=== PATIENT | male | born 1960 | race Caucasian/White ===

== ENCOUNTER 2023-01-20 13:18 | Emergency (ER) | payer MEDICAID, SELFPAY ==
[2023-01-20] VITALS (16 sets, daily range): BP systolic 102–154; BP diastolic 57–74; PULSE 86–149; RESP 15–31; TEMP 36.8; O2SAT 98–100
--- NOTE | 2023-01-20 13:15 | RT.EKG_ITS ---
APPROVED REPORT Exam: Resting ECG Reason for Exam: general weakness Patient Location: E HR:103 bpm ECG Measurements Heart Rate 103 AXIS KS 120 P 71 QRSd 83 QRS -82 QT 329 T 70 QTc 431 Conclusion Sinus tachycardia...rate> 99 Left anterior fascicular block...axis(240,-40), init forces inf ST elevation, consider inferior injury...ST >0.08mV, II III aVF no stemi
--- NOTE | 2023-01-20 13:30 | DI.RAD_ITS ---
Exam(s) XR CHEST 2V PA LATERAL EXAM: XR CHEST 2V PA LATERAL CLINICAL HISTORY: ?pneumonia. TECHNIQUE: 2D digital imaging was performed. COMPARISON: No exams were available for comparison FINDINGS: 2 views: Heart size is normal. The mediastinum is not widened. Lungs are clear. No infiltrates nor pleural effusions. IMPRESSION: No acute pulmonary findings. DATA REPOSITORY: RADIATION DOSE DELIVERED:
--- NOTE | 2023-01-20 13:30 | DI.CT_ITS ---
Exam(s) CT HEAD CERVICAL SPINE WO EXAM: CT HEAD CERVICAL SPINE WO CLINICAL HISTORY: falls, pain. TECHNIQUE: Imaging Protocol: Axial computed tomography images with coronal and sagittal reformatted images were created and reviewed COMPARISON: No exams were available for comparison FINDINGS: BRAIN: There are no skull fractures nor fluid in the visualized paranasal sinuses. There is no evidence of intracranial hemorrhage, mass effect, or shift of midline structures. There are no extra-axial fluid collections. The ventricles are not enlarged or shifted and there is no blo od within the ventricular system nor within the basal cisterns. CERVICAL SPINE: There is no evidence of fracture nor listhesis. No significant prevertebral soft tissue swelling. There is no significant facet joint malalignment. No significant osseous lesions evident. IMPRESSION: No acute intracranial findings on this noninfused CT scan of the brain. No evidence of cervical spine fracture, malalignment, nor acute compromise of the cervical spinal can al. RADIATION DOSE DELIVERED: 1,220.77mGy.cm Total DLP DATA REPOSITORY: All CT scans at this facility are submitted to the National Radiology Data Registry (NRDR) Dose Index Registry (DIR) with the [employer] ([employer]). RADIATION OPTIMIZATION: All CT scans at this facility use at least one of these dose optimization te chniques: automated exposure control; mA and/or kV adjustment per patient size (includes targeted exa ms where dose is matched to clinical indication); or iterative reconstruction.
--- NOTE | 2023-01-20 13:32 | ED.GENADUL_ITS ---
Discharge Plan Disposition Patient Disposition: Home Condition: Stable Discharge Details Clinical Impression: General weakness, Urinary tract infection, Fall, Blunt head trauma Primary Care Provider: Unknown,Unknown ED Provider: Chidi Miles Home Meds and New Rx's Prescriptions: New levofloxacin 750 mg tablet 750 mg PO DAILY Qty: 6 0RF Discharge Instructions Instructions: Urinary Tract Infection in Men (ED) Additional Instructions: your urine showed evidence of an infection follow up with your primary care provider and urologist especially if not improving in one week if you feel more ill, have severe abdomen or back pain, or fevers return to the emergency department Medical Decision Making 62 yo male who is unsure what medical problems he was on meds for but decided to stop taking them a month ago, and since has had general weakness. He denies fevers, chills, chest pain, dyspnea, abdominal pain. He has had some falls from standing, none today, from the weakness. He is oriented x4 and alert on arrival, is cachectic appearing. He has no focal deficits, cn II-XII intact. He has noted some dysuria. He has clear lungs, no murmurs, soft nontender abdomen. Unclear etiology for his generl malaise, will obtain cbc, cmp, ua, given the falls will ct his head and c cspine to evaluate for acute injuries. He has no findings to suggest cva. labs show wbc of 17, bun 48 and creatinine 1.3 with no olds in our system, ua consistent with uti and has stated he has dysuria. Imaging shows no acute findings, he feels well and is requesting d/c. HAs stable vitals and appears well so feel this is resonable, will start on oral levofloxacin and advised to f/u with his pcp and his urologist he sees in [place], return precautions given Differential Diagnosis Differential Diagnosis: dehydration, malnutrition, uti, electrolyte abnormality Imaging Data Radiologic Study: Attestation: I personally reviewed and interpreted this imaging study as follows: Imaging: X-Ray Radiologist's impression: PROCEDURE INFORMATION: Exam: XR Chest Exam date and time: 01/20/2023 2:11 PM Age: 62 years old Clinical indication: Other: ? Pneumonia TECHNIQUE: Imaging protocol: Radiologic exam of the chest. Views: 2 views. COMPARISON: CT HEAD CERVICAL SPINE WO 01/20/2023 1:59 PM FINDINGS: Lungs: There is no pulmonary consolidation or mass. Hyperinflation consistent with COPD changes. Pleural spaces: There is no evidence of pleural effusion or pneumothorax. Heart/Mediastinum: The cardiomediastinal silhouette is normal. Vasculature: Mild calcification of the thoracic aorta. Bones/joints: Degenerative changes of the thoracic spine, RIGHT acromioclavicular joint. No acute osseous findings. IMPRESSION: 1. No acute cardiopulmonary disease. 2. Additional incidental/nonemergent findings as discussed above. Radiologic Study #2: Attestation: I personally reviewed and interpreted this imaging study as follows: Imaging: CT Scan Radiologist's impression: no acute findings on head/c spine CT Lab Data Lab results reviewed: Yes I reviewed the patient's lab results. ECG Data Attestation: I personally reviewed and interpreted this ECG (s) as follows: Prior ECG tracings: not available for review Interpretation: sinus tachycardia, rate of 103, pr 120, no stemi HPI General Mode of arrival: EMS . Date/Time Provider Initiated Documentation: 01/20/23 13:30 . Limitations to Documentation: no limitations . Information obtained by: patient . History of Present Illness 62 year old M presents to the emergency department with the chief complaint of general weakness, described as moderate, Patient started experiencing this week(s) (4) and it has been constant. No relieving factors improve symptom(s), No exacerbating factors reported . Patient notes no other symptoms.. Patient did receive the following treatments prior to arrival, none Related Data Home Medications Medication Instructions Recorded Confirmed levofloxacin 750 mg tablet 750 mg PO DAILY #6 tabs 01/20/23 Previous Rx's Medication Instructions Recorded levofloxacin 750 mg tablet 750 mg PO DAILY #6 tabs 01/20/23 Allergies Allergy/AdvReac Type Severity Reaction Status Date / Time NSAIDS (Non-Steroidal Allergy Unknown Verified 01/11/23 08:05 Anti-Inflamma General Stated Complaint: GenMedical PAUL: 3 Review of Systems All systems reviewed & are unremarkable except as noted in HPI and below Constitutional Constitutional: Denies chills, Denies fever(s) and Reports weakness Cardiovascular Cardiovascular: Denies chest pain and Denies dyspnea Respiratory Respiratory: Denies dyspnea Gastrointestinal Gastrointestinal: Denies abdominal pain, Denies nausea and Denies vomiting Musculoskeletal Musculoskeletal: Denies joint swelling Integumentary/Breasts Skin/Breast: Denies rash Neurologic Neurologic: Reports weakness PFSH All Active Problems (Updated 01/20/23 @ 15:43 by Chidi Miles MD) General weakness (Acute) Urinary tract infection (Acute) Fall (Acute) Blunt head trauma (Acute) Hyperlipidemia (Acute) Hypertension (Chronic) Bladder mass (Acute) Social History (Updated 01/11/23 @ 08:08 by Marina Mcfarlane RN, RN) Smoking/Tobacco Use Status: Current every day Smoking risk assessment performed?: Yes Alcohol Intake: current Alcohol Intake frequency: 3 or more drinks per day Alcohol type: beer Substance use type: former substance user What is your relationship status?: Panel score (0-1 are the most socially isolated patients): 0 Do you feel safe at home: Yes Do you feel safe in your relationship?: Yes Exam Const General: no acute distress Orientation: alert HENMT Head: normal to inspection Ears: external ears normal General nose exam: external nose normal Mouth: moist mucous membranes Resp Effort & Inspection: normal respiratory effort and able to speak in complete sentences Cardio Jugular venous pressure: no JVD Rate: regular rate Heart Sounds: no murmurs GI Palpation: soft and nontender Skin General skin exam: no rashes or lesions noted Neuro General: patient alert and patient oriented x3 Extrem General: normal to inspection Course Vital Signs Vital signs: Vital Signs Temperature 36.8 C 01/20/23 13:23 Pulse 140 H 01/20/23 13:23 Respiratory Rate 30 H 01/20/23 13:23 Blood Pressure 102/58 L 01/20/23 13:23 Pulse Oximetry 99 01/20/23 13:23 Temperature 36.8 C 01/20/23 13:23 Temperature Source Oral 01/20/23 13:23 Pulse 140 H 01/20/23 13:23 Respiratory Rate 30 H 01/20/23 13:23 Blood Pressure 102/58 L 01/20/23 13:23 Blood Pressure Position Sitting 01/20/23 13:23 Pulse Oximetry 99 01/20/23 13:23 Pain Level 0 01/20/23 13:23
[2023-01-20] MEDS: Normal Saline 1,000 ML 1000 ML IV (13:45)
[2023-01-20 13:48] LABS: Source Nasal/Nares
[2023-01-20 13:51] LABS: Abs Immature Grans 0.11 10^3/uL (0.0-0.06); Absolute Basophil Count 0.03 10^3/uL (0.0-0.2); Basophils % 0.2; Eosinophils % 0.1; HCT 46.2 % (40.0-50.0); HGB 15.6 g/dL (13.5-17.5); Immature Grans % 0.6; Lymphocytes % 4.1; MCH 28.7 pg (27.0-33.0); MCHC 33.8 % (32.0-36.0); MCV 85 fL (80-95); MPV 9.4 fL (8.0-11.0); Monocytes % 4.1; Neutrophils % 90.9; Platelet Count 258 10^3/uL (130-400); RBC 5.44 10^6/uL (4.36-5.78); RDW 13.2 % (11.8-14.1); RDW-SD 40.8 fL; WBC 17.03 10^3/uL (4.4-10.8)
[2023-01-20 13:53] LABS: Absolute Eosinophil Count 0.02 10^3/uL (0.0-0.7); Absolute Neutrophil Count 15.48 10^3/uL (1.2-6.7)
[2023-01-20 14:04] LABS: PTT Activated 29.3 sec (21.5-31.9)
[2023-01-20 14:16] LABS: ALT 13 U/L (16-63); AST 11 U/L (15-37); Albumin 3.1 g/dL (3.4-5.0); Alkaline Phosphatase 132 U/L (46-116); Anion Gap 12.1 mmol/L (3-11); BUN 48 mg/dL (7-18); Bilirubin, Total 0.7 mg/dL (0.2-1.0); CO2 23.9 mmol/L (21.0-32.0); CREATININE 1.3 mg/dL (0.70-1.30); Calcium 10.4 mg/dL (8.5-10.1); Chloride 95 mmol/L (98-107); Creatine Kinase 18 U/L (39-308); Estimated GFR 61.35 (mL/min/1.73m2); Glucose 103 mg/dL (74-106); Lipase 22 U/L (16-77); Magnesium 2.1 mg/dL (1.8-2.4); Potassium 4.6 mmol/L (3.5-5.1); Sodium 131 mmol/L (136-145); TSH (W/Ref FT4) 2.85 uIU/mL (0.36-3.74); Total Protein 7.5 g/dL (6.4-8.2); Troponin I < 50 ng/L (<or=60)
[2023-01-20 14:21] LABS: COVID-19 PCR Negative (Negative)
[2023-01-20 14:43] LABS: Procalcitonin 0.1 ng/mL
--- NOTE | 2023-01-20 14:52 | DI.VRAD_ITS ---
PROCEDURE INFORMATION: Exam: XR Chest Exam date and time: 01/20/2023 2:11 PM Age: 62 years old Clinical indication: Other: ? Pneumonia TECHNIQUE: Imaging protocol: Radiologic exam of the chest. Views: 2 views. COMPARISON: CT HEAD CERVICAL SPINE WO 01/20/2023 1:59 PM FINDINGS: Lungs: There is no pulmonary consolidation or mass. Hyperinflation consistent with COPD changes. Pleural spaces: There is no evidence of pleural effusion or pneumothorax. Heart/Mediastinum: The cardiomediastinal silhouette is normal. Vasculature: Mild calcification of the thoracic aorta. Bones/joints: Degenerative changes of the thoracic spine, RIGHT acromioclavicular joint. No acute osseous findings. IMPRESSION: 1. No acute cardiopulmonary disease. 2. Additional incidental/nonemergent findings as discussed above. Dictated and Authenticated by: Sunita Baer MD. Ordering:VICENTE Murillo MD
--- NOTE | 2023-01-20 15:05 | DI.VRAD_ITS ---
PROCEDURE INFORMATION: Exam: CT Head Without Contrast Exam date and time: 01/20/2023 1:59 PM Age: 62 years old Clinical indication: Other: Falls/ pain; Weakness and other: Falls/pain TECHNIQUE: Imaging protocol: Computed tomography of the head without contrast. Radiation optimization: All CT scans at this facility use at least one of these dose optimization techniques: automated exposure control; mA and/or kV adjustment per patient size (includes targeted exams where dose is matched to clinical indication); or iterative reconstruction. COMPARISON: No relevant prior studies available. FINDINGS: Brain: Mild volume loss No hemorrhage. Mild white matter disease. No mass effect. Cerebral ventricles: No ventriculomegaly. Paranasal sinuses: Visualized sinuses are unremarkable. No fluid levels. Mastoid air cells: Visualized mastoid air cells are well aerated. Bones/joints: Unremarkable. No acute fracture. Soft tissues: Unremarkable. IMPRESSION: No acute intracranial abnormality. PROCEDURE INFORMATION: Exam: CT Cervical Spine Without Contrast Exam date and time: 01/20/2023 1:59 PM Age: 62 years old Clinical indication: Other: Falls/ pain; Weakness and other: Falls/pain TECHNIQUE: Imaging protocol: Computed tomography of the cervical spine without contrast. Radiation optimization: All CT scans at this facility use at least one of these dose optimization techniques: automated exposure control; mA and/or kV adjustment per patient size (includes targeted exams where dose is matched to clinical indication); or iterative reconstruction. COMPARISON: No relevant prior studies available. FINDINGS: Bones/joints: No acute fracture. Loss of cervical lordosis is presumably on a degenerative basis.No significant disc bulge or herniation. No severe spinal canal stenosis. No significant neural foraminal narrowing. Lungs: 3 mm nodule in the right upper lobe partially visualized Soft tissues: Unremarkable. IMPRESSION: No acute findings. Dictated and Authenticated by: Renny Nguyen MD. Ordering:VICENTE Murillo MD
[2023-01-20 15:08] LABS: Bilirubin Small (Negative); Blood Large (Negative); Clarity Cloudy (Clear); Glucose Negative (Negative); Ketones 15 mg/dL (Negative); Leukocyte Esterase Small (Negative); Nitrite Negative (Negative); Specific Gravity >= 1.030 (1.005-1.025); Urobilinogen 0.2 mg/dL (Up to 0.2)
[2023-01-20 15:20] LABS: Bacteria Many HPF (Negative); C & S Indicated? Yes; Casts Negative LPF (Negative); Crystals Negative HPF (Negative); Epithelial Cells Few HPF (Negative); Mucus Moderate (Negative); RBC >50 HPF (0-2)
[2023-01-20] MEDS: levoFLOXacin 500 MG, levoFLOXacin 250 MG 750 MG PO (15:30)
--- NOTE | 2023-01-20 16:31 | NUR.NOTE ---
Referral per Dr. Miles for Care Management follow up assistance for placement assistance for patient. Patient's brother would like to see the patient placed at [facility]. He was here for weakness. Put the referral in the Docking Saw Operator's box for follow up assistance.Nursing Note:
--- NOTE | 2023-01-22 09:55 | NUR.NOTE ---
Accessed chart to look up whether or not on antibiotic.Nursing Note:
== END 2023-01-20 15:50 | disposition home or self-care (01) ==
PROVIDERS: Emergency Provider Emergency Medicine
DX: R53.1 Weakness (principal); N39.0 Urinary tract infection, site not specified; S09.8XXA Other specified injuries of head, initial encounter; W19.XXXA Unspecified fall, initial encounter
CPT/HCPCS: 80053; 82550; 83690; 84145; 87635; 93005; 96360; 96361; 99284; 70450; 71046; 72125; 81003; 81015; 83735; 84443; 84484; 85025; 85610; 85730; 87086; 93010

== ENCOUNTER 2023-01-22 10:52 | Inpatient (IN) | payer MEDICAID, SELFPAY ==
[2023-01-22] VITALS (20 sets, daily range): BP systolic 85–154; BP diastolic 53–85; PULSE 75–115; RESP 12–21; TEMP 36.6; O2SAT 94–97
--- NOTE | 2023-01-22 11:54 | ED.GENADUL_ITS ---
Discharge Plan Disposition Patient Disposition: Admit to [facility] Discharge Details Chief Complaint: GenMedical Clinical Impression: Bladder mass, General weakness, Urinary tract infection, Adult failure to thrive Primary Care Provider: Unknown,Unknown ED Provider: Tim Alcantar Home Meds and New Rx's Prescriptions: No Action levofloxacin 750 mg tablet 750 mg PO DAILY Qty: 6 0RF Medical Decision Making This is a 62-year-old male who is a very poor historian, who unfortunately does not have much in the way of medical records here, but upon searches has been to few hospitals in [facility] and here before. Per review of that it appears that he may have diagnoses of major depression, schizophrenia, questionable bladder mass, may be seizures?, And previous electrolyte abnormalities, who presents today for evaluation. He was seen 3 days ago by my colleague after falls and weakness. He had evidence of urinary tract infection. CT imaging of the head neck chest and abdomen were negative for acute process. He was started on Levaquin and discharged home. Unfortunately it sounds like he keeps falling at home. He was brought in by his cousin Camden today who brought him to the ED and said I cannot take care of him anymore, I cannot meet his needs. Unfortunately the cousin left, and there are no other contact numbers on file. We did call the number that is on file and it goes directly to [facility]. Patient states that he has generalized soreness in his right chest where he fell, his buttock, and feels slightly nauseous. He does admit to some diarrhea over the last few days. He states also that Camden is not able to take care of him at this stage. They are looking for help and assistance. Per access and initial nursing staff triage Camden was requesting placement for the patient. No other complaints at this time. No other modifying factors. Exam demonstrates a thin and cachectic appearing male. No focal bruising. No focal tenderness aside for the right ribs. Pelvis appears stable. Notably weak throughout, with no focal unilateral weakness. Suspect failure to thrive. Questionable dehydration as well from his diarrhea. Will check for C. difficile and stool study cultures. We will recheck UA, give small fluid bolus, check for electrolyte abnormalities, get imaging secondary to his repeated falls. We did try contacting his cousin Camden who the patient lives with, and it went directly to voicemail. Patient has no other contacts available otherwise. Will evaluate for etiologies, monitor closely and reassess. 2:[address] scan of the head is negative for acute process, CT of the chest abdomen pelvis demonstrates multiple lung nodules, suspected liver metastases, notable lymphadenopathy throughout, and a large bladder mass as well as hydroureter hydronephrosis on the right and left secondary to mass obstruction. White count is slightly worsening, now 18, urinalysis shows continued mild infection. Electrolytes stable, renal function slightly worse with a creatinine of 1.5. Alk phos 130, albumin is low at 2.9, TSH is high at 4.2, but free T4 is normal. I did discuss these results with the patient. His brother is also now at bedside. I had a long and maya discussion with the patient regarding his findings, metastases, and the concern that this has on the potential longevity of life. Patient was uncertain at this time as to what he wants in regards to pursuit of treatment. He does not appear stable enough to go home at this time with his notable weakness, his continued failure to thrive and urinary tract infection despite the outpatient therapy of levofloxacin. I have discussed the case with case management, they agree on the need for additional resources. With his worsening scenario, I do feel that admission is appropriate at this time. Discussed the case with the hospitalist Dr. Mack, he agrees with the assessment and plan. I have extensively reviewed the treatment plan with the patient. I have addressed all patient concerns at this time. I have also discussed the plan with the admitting physician and they agree with the current assessment and plan and have agreed to assume responsibility for the patient. All parties demonstrate verbal understanding and agreement with our assessment and plan at this time. The documentation in this chart was dictated using [employer] dictation software. Please excuse any dictation errors. FINDINGS: There are no skull fractures. There is no fluid in the visualized paranasal sinuses. There is no evidence of intracranial hemorrhage, mass effect, or shift of midline structures. There are no extra-axial fluid collections. The ventricles are not enlarged or shifted and there is no blood within the ventricular system nor within the basal cisterns. IMPRESSION: No acute intracranial findings on this noninfused CT scan of the brain. FINDINGS: CHEST: LUNGS: There are noncalcified lung nodules bilaterally suspicious for metastatic disease. The largest on the right side measures 11 by 10 mm. Largest nodule in the left lung measures 11 by 9 mm. There are no confluent infiltrates nor pleural effusions. There are secretions/mucus evident in the right mainstem bronchus. Left mainstem bronchus is clear. MEDIASTINUM: There is mediastinal lymphadenopathy. No obvious hilar adenopathy. No subcarinal adenopathy. No supraclavicular adenopathy. No right axillary adenopathy. Few enlarged lymph nodes are noted in the opposite-lower left axilla. CARDIAC: Heart size is normal. Small pericardial effusion. Coronary artery calcification evident. Ascending thoracic aorta diameter is 3.6 cm. Descending thoracic aorta diameter 2.8 cm. OSSEOUS: The right 6th rib has appearance of a healed-healing fracture site. No other significant right rib findings.. No left rib findings. No vertebral fractures nor osseous lesions in the vertebral bodies.. ABDOMEN: There is no ascites. No mesenteric masses. LIVER: Subtle suggestion of abnormal densities in the liver but difficult to assess without IV contrast. Suspect possible metastatic disease. GALLBLADDER/BILIARY: No obvious gallbladder pathology. CBD is not dilated. PANCREAS: No evidence of obvious pancreatic mass nor dilatation of the pancreatic duct. SPLEEN: Spleen is not enlarged. No obvious intrasplenic lesions. ADRENALS: There are no significant adrenal masses. KIDNEYS: No renal masses nor cysts. Left kidney unremarkable. Right kidney exhibits hydronephrosis and hydroureter. Diameter of the right ureter is 1.5 cm. Diameter of the left ureter is slightly prominent measuring 9 mm.. The urinary bladder lumen is filled with mass, partially calcified. Highly suspicious for neoplasm of the urinary bladder. ABDOMINAL AORTA: Heavily calcified but not enlarged. LYMPH NODES: There is some retroperitoneal and para-aortic adenopathy. Also some adenopathy along the iliac chains, left more so than right. ABDOMINAL WALL/GI: No evidence of significant anterior abdominal wall nor inguinal hernia. No evidence of bowel obstruction. PELVIS: LYMPH NODES: Positive for intrathecal pelvic adenopathy. Most prominent is along the left iliac chain. Also enlarged lymph nodes in the left groin medial to the femoral vein. GI: No evidence of appendicitis.No evidence of sigmoid diverticulitis. URINARY BLADDER: Large luminal neoplasm evident. REPRODUCTIVE: Prostate size minimally prominent. Seminal vesicles unremarkable. OSSEOUS: No significant osseous lesions. IMPRESSION: 1. Large advanced mass in the urinary bladder highly suspicious and causing significant right hydronephrosis and hydroureter and mild left hydroureter. 2. There is lymphadenopathy in the pelvis, retroperitoneum, and mediastinum. 3. Multiple lung nodules noted which are most probably metastatic. No associated pleural effusions. 4. Suspect liver metastases, somewhat difficult to evaluate without IV contrast. HPI General Date/Time Provider Initiated Documentation: 01/22/23 11:12 . HPI Narrative: This is a 62-year-old male who is a very poor historian, who unfortunately does not have much in the way of medical records here, but upon searches has been to few hospitals in [facility] and here before. Per review of that it appears that he may have diagnoses of major depression, schizophrenia, questionable bladder mass, may be seizures?, And previous electrolyte abnormalities, who presents today for evaluation. He was seen 3 days ago by my colleague after falls and weakness. He had evidence of urinary tract infection. CT imaging of the head neck chest and abdomen were negative for acute process. He was started on Levaquin and discharged home. Unfortunately it sounds like he keeps falling at home. He was brought in by his cousin Camden today who brought him to the ED and said I cannot take care of him anymore, I cannot meet his needs. Unfortunately the cousin left, and there are no other contact numbers on file. We did call the number that is on file and it goes directly to [email or web address]. Patient states that he has generalized soreness in his right chest where he fell, his buttock, and feels slightly nauseous. He does admit to some diarrhea over the last few days. He states also that Camden is not able to take care of him at this stage. They are looking for help and assistance. Per access and initial nursing staff triage Camden was requesting placement for the patient. No other complaints at this time. No other modifying factors. Related Data Home Medications Medication Instructions Recorded Confirmed levofloxacin 750 mg tablet 750 mg PO DAILY #6 tabs 01/20/23 01/22/23 Previous Rx's Medication Instructions Recorded levofloxacin 750 mg tablet 750 mg PO DAILY #6 tabs 01/20/23 Allergies Allergy/AdvReac Type Severity Reaction Status Date / Time NSAIDS (Non-Steroidal Allergy Unknown Verified 01/22/23 11:48 Anti-Inflamma General Stated Complaint: GenMedical PAUL: 3 Review of Systems All systems reviewed & are unremarkable except as noted in HPI and below PFSH All Active Problems (Updated 01/22/23 @ 14:42 by Tim Alcantar DO) General weakness (Acute) Urinary tract infection (Acute) Fall (Acute) Blunt head trauma (Acute) Adult failure to thrive (Acute) Hyperlipidemia (Acute) Hypertension (Chronic) Bladder mass (Acute) Social History Smoking/Tobacco Use Status: Current every day Tobacco Type: cigarettes Smoking risk assessment performed?: Yes Alcohol Intake: current Alcohol Intake frequency: 3 or more drinks per day Alcohol type: beer Drug use: Occasionally Substance use type: marijuana What is your relationship status?: Panel score (0-1 are the most socially isolated patients): 0 Do you feel safe at home: Yes Do you feel safe in your relationship?: Yes Exam Narrative Exam Narrative: 1.Const: Thin and cachectic appearing 2.Eyes: PERRL, no conjunctival injection, and symmetrical lids. 3.ENT: Atraumatic external nose and ears. Moist MM. Neck: Symmetric, trachea midline, No thyromegaly. There is no evidence of raccoon eyes, flores sign, CSF rhinorrhea, mastoid tenderness, cranial crepitus, hemotympanum, exophthalmos, or hyphema. Patient demonstrates intact dentition with no signs of tooth avulsion or fracture, no signs of jaw deformity, no evidence of a LeFort's fracture, with an intact palate, nose and orbital region. There is no evidence of a nasal septal hematoma. No proptosis. Jaw closes symmetrically. Airway is clear. 4.CVS: +S1/S2, No murmurs or gallops. Peripheral pulses 2+ and equal in all extremities. Brisk capillary refill in all extremities. 5.RESP: Unlabored respiratory effort. Clear to auscultation bilaterally. No wheezes rales or rhonchi. Mild right-sided chest pain. 6.GI: Soft, Nontender/Nondistended, No hepatosplenomegaly. No guarding or rebound. 7.MSK: Normocephalic/Atraumatic, Extremities w/o deformity or ttp No cyanosis or clubbing, Normal movement of all extremities, however he is notably weak throughout 8.Skin: Warm, Dry. No rashes or lesions. 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 Sensation grossly intact, no focal neurologic deficits. 10.Psych: (AAO) x3. Appropriate mood and affect Course Vital Signs Vital signs: Vital Signs Temperature 36.6 C 01/22/23 10:55 Pulse 115 H 01/22/23 10:55 Respiratory Rate 18 01/22/23 10:55 Blood Pressure 85/53 L 01/22/23 10:55 Pulse Oximetry 97 01/22/23 10:55 Temperature 36.6 C 01/22/23 10:55 Temperature Source Skin 01/22/23 10:55 Pulse 115 H 01/22/23 10:55 Respiratory Rate 16 01/22/23 11:44 Respiratory Effort Normal 01/22/23 11:44 Respiratory Depth Normal 01/22/23 11:44 Respiratory Pattern Normal 01/22/23 11:44 Blood Pressure 85/53 L 01/22/23 10:55 Blood Pressure Position Sitting 01/22/23 10:55 Pulse Oximetry 97 01/22/23 10:55 Oxygen Delivery Method Room Air 01/22/23 10:55 Oxygen Flow Rate 0 01/22/23 10:55 Pain Level 8 01/22/23 10:55 PAWSS Have you Been Recently Intoxicated or Drunk Within the Last 30 days?: Yes Have you Ever Experienced Previous Episodes of Alcohol Withdrawal?: No Have you ever Experienced Withdrawal Seizures?: No Have you ever Experienced Delirium Tremens(DT)s?: No Have you ever undergone Alcohol Rehabilitation Treatment (i.e, inpt ot outpatient treatment programs)?: No Have you ever Experienced Blackouts?: No Have you ever Combined Alcohol with other Downers within the last 90 days?: No Have you ever Combined Alcohol with any other Substance of Abuse during the last 90 days?: No Result: 1
[2023-01-22 12:04] LABS: Abs Immature Grans 0.22 10^3/uL (0.0-0.06); Absolute Lymphocyte Count 0.65 10^3/uL (1.2-3.4); Basophils % 0.3; Eosinophils % 0.1; HCT 50.3 % (40.0-50.0); HGB 16.9 g/dL (13.5-17.5); Immature Grans % 1.2; Lymphocytes % 3.5; MCHC 33.6 % (32.0-36.0); MCV 86 fL (80-95); MPV 9.7 fL (8.0-11.0); Monocytes % 3.6; Neutrophils % 91.3; Platelet Count 293 10^3/uL (130-400); RBC 5.83 10^6/uL (4.36-5.78); RDW 13.6 % (11.8-14.1); RDW-SD 42.2 fL; WBC 18.49 10^3/uL (4.4-10.8)
[2023-01-22 12:07] LABS: Absolute Basophil Count 0.06 10^3/uL (0.0-0.2); Absolute Eosinophil Count 0.02 10^3/uL (0.0-0.7); Absolute Monocyte Count 0.67 10^3/uL (0.1-0.8); Absolute Neutrophil Count 16.88 10^3/uL (1.2-6.7)
[2023-01-22] MEDS: Normal Saline 500 ML IV ×2 (12:20→14:50)
[2023-01-22 12:49] LABS: ALT 12 U/L (16-63); AST 15 U/L (15-37); Albumin 2.9 g/dL (3.4-5.0); Alkaline Phosphatase 130 U/L (46-116); Anion Gap 13.9 mmol/L (3-11); BUN 49 mg/dL (7-18); Bilirubin, Total 0.7 mg/dL (0.2-1.0); CO2 23.1 mmol/L (21.0-32.0); CREATININE 1.5 mg/dL (0.70-1.30); Chloride 96 mmol/L (98-107); Estimated GFR 51.67 (mL/min/1.73m2); Glucose 111 mg/dL (74-106); Magnesium 2.1 mg/dL (1.8-2.4); Potassium 4.3 mmol/L (3.5-5.1); Sodium 133 mmol/L (136-145); Total Protein 7.5 g/dL (6.4-8.2)
--- NOTE | 2023-01-22 12:50 | DI.CT_ITS ---
Exam(s) CT HEAD WO EXAM: CT HEAD WO CLINICAL HISTORY: falls r/o bleed. TECHNIQUE: Imaging Protocol: Axial computed tomography images with coronal and sagittal reformatted images were created and reviewed COMPARISON: CT CT HEAD CERVICAL SPINE WO from 01/20/2023 FINDINGS: There are no skull fractures. There is no fluid in the visualized paranasal sinuses. There is no evidence of intracranial hemorrhage, mass effect, or shift of midline structures. There are no extra-axial fluid collections. The ventricles are not enlarged or shifted and there is no blo od within the ventricular system nor within the basal cisterns. IMPRESSION: No acute intracranial findings on this noninfused CT scan of the brain. RADIATION DOSE DELIVERED: 722.42mGy.cm Total DLP DATA REPOSITORY: All CT scans at this facility are submitted to the National Radiology Data Registry (NRDR) Dose Index Registry (DIR) with the [employer] (A[employer]). RADIATION OPTIMIZATION: All CT scans at this facility use at least one of these dose optimization te chniques: automated exposure control; mA and/or kV adjustment per patient size (includes targeted exa ms where dose is matched to clinical indication); or iterative reconstruction.
--- NOTE | 2023-01-22 13:00 | DI.CT_ITS ---
Exam(s) CT CHEST/ABD/PEL WO EXAM: CT CHEST/ABD/PEL WO CLINICAL HISTORY: multiple falls, right rib pain. TECHNIQUE: Imaging Protocol: Axial computed tomography images with coronal and sagittal reformatted images were created and reviewed CONTRAST MATERIAL: Intravenous: none Oral: None COMPARISON: No exams were available for comparison FINDINGS: CHEST: LUNGS: There are noncalcified lung nodules bilaterally suspicious for metastatic disease. The larges t on the right side measures 11 by 10 mm. Largest nodule in the left lung measures 11 by 9 mm. Ther e are no confluent infiltrates nor pleural effusions. There are secretions/mucus evident in the righ t mainstem bronchus. Left mainstem bronchus is clear. MEDIASTINUM: There is mediastinal lymphadenopathy. No obvious hilar adenopathy. No subcarinal adeno katherine. No supraclavicular adenopathy. No right axillary adenopathy. Few enlarged lymph nodes are n oted in the opposite-lower left axilla. CARDIAC: Heart size is normal. Small pericardial effusion. Coronary artery calcification evident. Ascending thoracic aorta diameter is 3.6 cm. Descending thoracic aorta diameter 2.8 cm. OSSEOUS: The right 6th rib has appearance of a healed-healing fracture site. No other significant ri ght rib findings.. No left rib findings. No vertebral fractures nor osseous lesions in the vertebra l bodies.. ABDOMEN: There is no ascites. No mesenteric masses. LIVER: Subtle suggestion of abnormal densities in the liver but difficult to assess without IV contra st. Suspect possible metastatic disease. GALLBLADDER/BILIARY: No obvious gallbladder pathology. CBD is not dilated. PANCREAS: No evidence of obvious pancreatic mass nor dilatation of the pancreatic duct. SPLEEN: Spleen is not enlarged. No obvious intrasplenic lesions. ADRENALS: There are no significant adrenal masses. KIDNEYS: No renal masses nor cysts. Left kidney unremarkable. Right kidney exhibits hydronephrosis and hydroureter. Diameter of the right ureter is 1.5 cm. Diameter of the left ureter is slightly pr ominent measuring 9 mm.. The urinary bladder lumen is filled with mass, partially calcified. Highly suspicious for neoplasm of the urinary bladder. ABDOMINAL AORTA: Heavily calcified but not enlarged. LYMPH NODES: There is some retroperitoneal and para-aortic adenopathy. Also some adenopathy along th e iliac chains, left more so than right. ABDOMINAL WALL/GI: No evidence of significant anterior abdominal wall nor inguinal hernia. No evidence of bowel obstruction. PELVIS: LYMPH NODES: Positive for intrathecal pelvic adenopathy. Most prominent is along the left iliac diandra n. Also enlarged lymph nodes in the left groin medial to the femoral vein. GI: No evidence of appendicitis.No evidence of sigmoid diverticulitis. URINARY BLADDER: Large luminal neoplasm evident. REPRODUCTIVE: Prostate size minimally prominent. Seminal vesicles unremarkable. OSSEOUS: No significant osseous lesions. IMPRESSION: 1. Large advanced mass in the urinary bladder highly suspicious and causing significant right hydrone phrosis and hydroureter and mild left hydroureter. 2. There is lymphadenopathy in the pelvis, retroperitoneum, and mediastinum. 3. Multiple lung nodules noted which are most probably metastatic. No associated pleural effusions. 4. Suspect liver metastases, somewhat difficult to evaluate without IV contrast. Called by myself to ER. RADIATION DOSE DELIVERED: 795.29mGy.cm Total DLP DATA REPOSITORY: All CT scans at this facility are submitted to the National Radiology Data Registry (NRDR) Dose Index Registry (DIR) with the [employer] (ACR). RADIATION OPTIMIZATION: All CT scans at this facility use at least one of these dose optimization te chniques: automated exposure control; mA and/or kV adjustment per patient size (includes targeted exa ms where dose is matched to clinical indication); or iterative reconstruction.
[2023-01-22 13:08] LABS: FREE T4 1.14 ng/dL (0.76-1.46)
[2023-01-22 13:12] LABS: Bilirubin Small (Negative); Blood Large (Negative); Clarity Sl Cloudy (Clear); Glucose Negative (Negative); Ketones 15 mg/dL (Negative); Leukocyte Esterase Small (Negative); Nitrite Negative (Negative); Specific Gravity >= 1.030 (1.005-1.025); Urobilinogen 0.2 mg/dL (Up to 0.2)
[2023-01-22 13:19] LABS: RBC >50 HPF (0-2)
[2023-01-22 13:21] LABS: C & S Indicated? Yes
--- NOTE | 2023-01-22 15:23 | NUR.NOTE ---
Addendum entered by Henna Ortega 01/23/23 16:43: Received from [facility] a notice that they needed more specific dates and more information in order to fax us any information about the patient. Forms faxed to Med/Surg. Original Note: Nursing Note: Request for records from [facility]; medical and surgical summary, medication list and EKG.
--- NOTE | 2023-01-22 15:50 | W.UROLOGYCON ---
Date of service: 01/23/23 Time of Service: 07:05 Assessment and Plan Assessment and plan (1) Bladder mass: Status: Acute Assessment and plan: While the patient is new to our system, the bladder mass is at least known for the past month based on his [facility] CT scan. He almost certainly has metastatic bladder cancer as indicated in Dr. Remy's notes. Our approach will really depend on how aggressive the patient would like to be in his potential treatments. When I discussed the situation with the patient this morning, he mentioned that some of the details I was discussing sounded familiar. It was still very difficult for me to get a good handle on whether or not the patient understood our entire discussion. Depending on how aggressive the patient may want to pursue his work-up, he may need to have most of it done at a tertiary care center. I would be able to do a cystoscopy and TUR biopsy to confirm surgical pathology in his bladder. Given the size and extent of his bladder tumor, I would not expect to be able to completely resect his tumor or to place a ureteral stent in a retrograde manner. If he did want his right kidney drained, he would likely need a nephrostomy tube placed by interventional radiology. If he is interested in pursuing aggressive treatment for any identified tumor, he would need to be evaluated by medical oncology for likely systemic chemotherapy. On the other end of the spectrum, comfort care could be offered. He does have a palliative care referral and the palliative care providers may have a better sense regarding the patient's wishes. In the meantime, his bladder outlet does not seem obstructed with clots, so I do not see a need to place a urethral catheter. History of Present Illness History of Present Illness Chief Complaint: Bladder mass Narrative: This is a 62-year-old gentleman who presented to our emergency department yesterday with weakness and failure to thrive. He has sustained multiple falls. He lives with a relative who does not believe he can safely care for Fritz at home any longer. Fritz is a rather poor historian, but we found that he had been at the [facility] emergency department about a month ago. At that time, he had gross hematuria with clots. He had a CT scan which showed evidence of a large bladder mass, pelvic adenopathy and right hydronephrosis. His case was discussed with Dr. Yahaira armenta at [facility]. Since the patient was emptying his bladder, it was felt he did not need a catheter or admission to the hospital. He was seen by Dr. Jonel hartman in [place] as an outpatient. Dr. Remy suspected metastatic bladder cancer and planned on doing a TUR bladder tumor if the patient was medically appropriate. He had no local primary care provider and he had been complaining of some chest pain and shortness of breath with exertion. A cardiology evaluation was requested before the surgery could be scheduled. At this time, the patient is not describing clots in the urine. He voids small amounts frequently with some incontinence. Review of Systems Narrative: No fevers or chills No vision change or dysphasia No diabetes or thyroid dysfunction No hepatitis, ulcers, jaundice Hx head injury. No strokes No bleeding disorders No gout PFSH All Active Problems General weakness (Acute) Urinary tract infection (Acute) Fall (Acute) Blunt head trauma (Acute) Adult failure to thrive (Acute) Hyperlipidemia (Acute) Hypertension (Chronic) Bladder mass (Acute) Social History Smoking/Tobacco Use Status: Current every day Tobacco Type: cigarettes Smoking risk assessment performed?: Yes Alcohol Intake: current Alcohol Intake frequency: 3 or more drinks per day Alcohol type: beer Drug use: Occasionally Substance use type: marijuana Housing: other What is your relationship status?: Panel score (0-1 are the most socially isolated patients): 0 Do you feel safe at home: Yes Do you feel safe in your relationship?: Yes Exam Narrative Exam Narrative: He appears cachectic and chronically ill His vital signs are documented elsewhere His abdomen is soft with no peritoneal signs There are enlarged lymph nodes in the left inguinal region. No enlarged lymph nodes are palpable on the right He is awake and alert I reviewed his noncontrast CT scan on our PACS system. There is a large amount of solid tissue within the lumen of the bladder with adherent calcifications. There is pelvic adenopathy and severe right hydronephrosis and hydroureter. There is evidence of pulmonary metastasis as well. I reviewed his records on the [facility] EMR. The patient has not actually been at [facility], but apparently he has been at [facility] as recently as 12/29/2022. He had a CT of the abdomen and pelvis done at that time. I was able to review the films through the [facility] EMR. They have a similar appearance to his current CT scan with extensive bladder mass, right hydronephrosis and pelvic adenopathy. The chest was not imaged at that time. His urine culture from 2 days ago shows no bacterial growth. Results Last Vital Signs Temp 36.6 C 01/22/23 10:55 Pulse 83 01/22/23 14:47 Resp 16 01/22/23 14:48 BP 116/66 01/22/23 14:47 Pulse Ox 97 01/22/23 10:55 Labs 01/23/23 06:00 01/23/23 06:00 Labs: Laboratory Results - last 24 hr 01/22/23 01/22/23 01/22/23 11:59 11:59 11:59 WBC 18.49 H RBC 5.83 H Hgb 16.9 Hct 50.3 H MCV 86 MCH 29.0 MCHC 33.6 RDW 13.6 Plt Count 293 MPV 9.7 Immature Gran % 1.2 Neutrophils % 91.3 Lymphocytes % 3.5 Monocytes % 3.6 Eosinophils % 0.1 Basophils % 0.3 Nucleated RBC % 0.0 Absolute Neutrophils 16.88 H Absolute Lymphocytes 0.65 L Absolute Monocytes 0.67 Absolute Eosinophils 0.02 Absolute Basophils 0.06 Sodium Cancelled Potassium Cancelled Chloride Cancelled Carbon Dioxide Cancelled Anion Gap Cancelled BUN Cancelled Creatinine Cancelled Est GFR (CKD-EPI 2020) Cancelled Glucose Cancelled Calcium Cancelled Magnesium Cancelled Total Bilirubin Cancelled AST Cancelled ALT Cancelled Alkaline Phosphatase Cancelled Total Protein Cancelled Albumin Cancelled TSH Cancelled Free T4 Urine Color Urine Clarity Urine pH Ur Specific [place] Urine Protein Urine Ketones Urine Blood Urine Nitrite Urine Bilirubin Urine Urobilinogen Ur Leukocyte Esterase Urine RBC Urine WBC Ur Epithelial Cells Urine Crystals Urine Bacteria Urine Mucus Ur Culture Indicated? Urine Glucose 01/22/23 01/22/23 12:17 13:05 WBC RBC Hgb Hct MCV MCH MCHC RDW Plt Count MPV Immature Gran % Neutrophils % Lymphocytes % Monocytes % Eosinophils % Basophils % Nucleated RBC % Absolute Neutrophils Absolute Lymphocytes Absolute Monocytes Absolute Eosinophils Absolute Basophils Sodium 133 L Potassium 4.3 Chloride 96 L Carbon Dioxide 23.1 Anion Gap 13.9 H BUN 49 H Creatinine 1.5 H Est GFR (CKD-EPI 2020) 51.67 Glucose 111 H Calcium 11.0 H Magnesium 2.1 Total Bilirubin 0.7 AST 15 ALT 12 L Alkaline Phosphatase 130 H Total Protein 7.5 Albumin 2.9 L TSH 4.20 H Free T4 1.14 Urine Color Red Urine Clarity Sl Cloudy Urine pH 6.0 Ur Specific [place] >= 1.030 H Urine Protein >=300 H Urine Ketones 15 H Urine Blood Large H Urine Nitrite Negative Urine Bilirubin Small H Urine Urobilinogen 0.2 Ur Leukocyte Esterase Small H Urine RBC >50 H Urine WBC Ur Epithelial Cells Not Applicable Urine Crystals Not Applicable Urine Bacteria Urine Mucus Not Applicable Ur Culture Indicated? Yes Urine Glucose Negative
--- NOTE | 2023-01-22 16:03 | CMPROGNOTE_ITS ---
Date of service: 01/22/23 Time of Service: 16:03 Care Management Progress Note Progress Note Text Progress Note Text: CM met with Fritz at the request of Dr. Alcantar, to discuss needs in the community. Per Dr. Alcantar, Fritz is likely going to be accepted by the ospitalist for admission. Fritz was lying in the ED room bed when CM met with him. His brother Luis Manuel was in the room visiting. Fritz stated that he has not been doing well at home; he is currently staying with his cousin, Hung, who does not feel that he can continue to care for him. Fritz stated that he has been having diarrhea, and he doesn't always make it to the bathroom in time. Fritz reported that the last time he felt independent was about ten years ago, as his health has been slowly declining over time. He stated that the last year has been the most difficult, and most recently he has not had much of an appetite, has lost weight, and has been very weak. Fritz has support from his brother, Luis Manuel; his cousin, Hung; and his daughter, Krystal, who lives on [facility]. He reports traveling back and forth from [place] to the [facility]; he sometimes stays with his daughter when he is there. Luis Manuel reported that he and Fritz were just informed that Fritz likely has metastatic cancer, found on imaging, per MD. CM stated that Palliative care will be consulted during this admission to discuss goals of care. CM also discussed short term rehab, if indicated. CM will connect Fritz and his family with community supports, such as services, though housing options are limited, and he may require caregiver support. Fritz is comfortable with this plan.
--- NOTE | 2023-01-22 17:23 | W.PM.HP.N ---
Date of service: 01/22/23 Time of Service: 17:23 Assessment and Plan Assessment and plan (1) General weakness: Status: Acute Assessment and plan: Secondary to effects of likely metastatic cancer process. His brother did come to the hospital and states that Fritz has not been eating adequate amounts. (2) Fall: Status: Acute Assessment and plan: Secondary to weakness. (3) Adult failure to thrive: Status: Acute Assessment and plan: Likely metastatic cancer with poor appetite. (4) Bladder mass: Status: Acute Assessment and plan: Records from [facility] were requested in the ED. He had a previous CT there. Dr Jimenez, urology, has evaluated patient. A bx of the bladder mass would be possible at [facility] if the pt decides to pursue this. Any excision/debulking would need to be done at a [facility]. Dr Jimenez also mentioned that the right ureter would have to be stented in a retorgrade manner; also at a tertiary care center by IR. Ongoing discussion to be had regarding his goals of care. Palliative consulted. History of Present Illness History of Present Illness Chief Complaint: Weakness, falls Narrative: This is a 62 yo male that is a poor historian but records from [facility] indicate major depression, schizophrenia and imaging at [facility] indicated a possible bladder mass. He was seen in the [facility] ED 3 days ago and had a positive UA; prescribed Levaquin. He has been falling frequently and continues to c/o generalized weakness. His cousin, [place], has been helping Fritz but now states he no longer can. He endorsed having some loose stools recently. His lab was remarkable for a WBC count of 18.49. Hgb normal at 16.9. Na 133. K normal at 4.3. BUN 49. Creatinine 1.5. Glucose 111. Calcium mildly elevated at 11. Albumin 2.9. UA with SG of 1.030. Protein >300. Ketones elevated. Neg nitrities. Small leuk est RBC >50. Bacteria negative. Previous UA from days prior grew mixed severo. CT chest/abd/pelvis: 1. Large advanced mass in the urinary bladder highly suspicious and causing significant right hydronephrosis and hydroureter and mild left hydroureter. 2. There is lymphadenopathy in the pelvis, retroperitoneum, and mediastinum. 3. Multiple lung nodules noted which are most probably metastatic.? No associated pleural effusions. 4.? Suspect liver metastases, somewhat difficult to evaluate without IV contrast. Stool studies ordered but had not stooled at time of admission to hospitalist service. Review of Systems All systems reviewed & are unremarkable except as noted in HPI and below PFSH All Active Problems General weakness (Acute) Urinary tract infection (Acute) Fall (Acute) Blunt head trauma (Acute) Adult failure to thrive (Acute) Hyperlipidemia (Acute) Hypertension (Chronic) Bladder mass (Acute) Social History Smoking/Tobacco Use Status: Current every day Tobacco Type: cigarettes Smoking risk assessment performed?: Yes Alcohol Intake: current Alcohol Intake frequency: 3 or more drinks per day Alcohol type: beer Drug use: Occasionally Substance use type: marijuana Housing: other What is your relationship status?: Panel score (0-1 are the most socially isolated patients): 0 Do you feel safe at home: Yes Do you feel safe in your relationship?: Yes Meds Allergies and Home Medications Allergies Allergy/AdvReac Type Severity Reaction Status Date / Time NSAIDS (Non-Steroidal Allergy Unknown Verified 01/22/23 11:48 Anti-Inflamma Home Medications Medication Instructions Recorded Confirmed Type levofloxacin 750 mg tablet 750 mg PO DAILY #6 tabs 01/20/23 01/22/23 Rx Exam Narrative Exam Narrative: Gen: Thin and cachectic appearing HEENT: PERRL, no conjunctival injection. No facial deformities noted. CV: +S1/S2, No murmurs RESP: Clear. Nonlabored breathing. GI: Soft, Nontender/Nondistended Ext: No edema, calf tenderness, joint swelling or erythema. Skin: No rashes or lesions. Deep tissue injury with adjacent small open area of left-inner buttock; present on admission. Neuro: No focal motor deficits. Normal sensation to light touch. Psych: (AAO) x3. Affect is flat. Results Labs 01/23/23 06:00 01/23/23 06:00 Labs: Laboratory Results - last 24 hr 01/22/23 01/22/23 01/22/23 11:59 11:59 11:59 WBC 18.49 H RBC 5.83 H Hgb 16.9 Hct 50.3 H MCV 86 MCH 29.0 MCHC 33.6 RDW 13.6 Plt Count 293 MPV 9.7 Immature Gran % 1.2 Neutrophils % 91.3 Lymphocytes % 3.5 Monocytes % 3.6 Eosinophils % 0.1 Basophils % 0.3 Nucleated RBC % 0.0 Absolute Neutrophils 16.88 H Absolute Lymphocytes 0.65 L Absolute Monocytes 0.67 Absolute Eosinophils 0.02 Absolute Basophils 0.06 Sodium Cancelled Potassium Cancelled Chloride Cancelled Carbon Dioxide Cancelled Anion Gap Cancelled BUN Cancelled Creatinine Cancelled Est GFR (CKD-EPI 2020) Cancelled Glucose Cancelled Calcium Cancelled Magnesium Cancelled Total Bilirubin Cancelled AST Cancelled ALT Cancelled Alkaline Phosphatase Cancelled Total Protein Cancelled Albumin Cancelled TSH Cancelled Free T4 Urine Color Urine Clarity Urine pH Ur Specific [place] Urine Protein Urine Ketones Urine Blood Urine Nitrite Urine Bilirubin Urine Urobilinogen Ur Leukocyte Esterase Urine RBC Urine WBC Ur Epithelial Cells Urine Crystals Urine Bacteria Urine Mucus Ur Culture Indicated? Urine Glucose 01/22/23 01/22/23 12:17 13:05 WBC RBC Hgb Hct MCV MCH MCHC RDW Plt Count MPV Immature Gran % Neutrophils % Lymphocytes % Monocytes % Eosinophils % Basophils % Nucleated RBC % Absolute Neutrophils Absolute Lymphocytes Absolute Monocytes Absolute Eosinophils Absolute Basophils Sodium 133 L Potassium 4.3 Chloride 96 L Carbon Dioxide 23.1 Anion Gap 13.9 H BUN 49 H Creatinine 1.5 H Est GFR (CKD-EPI 2020) 51.67 Glucose 111 H Calcium 11.0 H Magnesium 2.1 Total Bilirubin 0.7 AST 15 ALT 12 L Alkaline Phosphatase 130 H Total Protein 7.5 Albumin 2.9 L TSH 4.20 H Free T4 1.14 Urine Color Red Urine Clarity Sl Cloudy Urine pH 6.0 Ur Specific [place] >= 1.030 H Urine Protein >=300 H Urine Ketones 15 H Urine Blood Large H Urine Nitrite Negative Urine Bilirubin Small H Urine Urobilinogen 0.2 Ur Leukocyte Esterase Small H Urine RBC >50 H Urine WBC Ur Epithelial Cells Not Applicable Urine Crystals Not Applicable Urine Bacteria Urine Mucus Not Applicable Ur Culture Indicated? Yes Urine Glucose Negative Last Vital Signs Temp 36.6 C 01/22/23 16:47 Pulse 90 01/22/23 16:47 Resp 17 01/22/23 16:47 BP 130/80 01/22/23 16:47 Pulse Ox 97 01/22/23 16:47 PAWSS Have you Been Recently Intoxicated or Drunk Within the Last 30 days?: Yes Have you Ever Experienced Previous Episodes of Alcohol Withdrawal?: No Have you ever Experienced Withdrawal Seizures?: No Have you ever Experienced Delirium Tremens(DT)s?: No Have you ever undergone Alcohol Rehabilitation Treatment (i.e, inpt ot outpatient treatment programs)?: No Have you ever Experienced Blackouts?: No Have you ever Combined Alcohol with other Downers within the last 90 days?: No Have you ever Combined Alcohol with any other Substance of Abuse during the last 90 days?: No Positive Blood Alcohol level on Presentation? [PCS.BAL]: No Evidence of Increased Autonomic Activity (i.e. HR>120, tremor, sweating, agitation, nausea)?: No Result: 1 Time Spent Time spent with Patient: 40-54 minutes Time was spent: preparing to see the patient(eg.review tests), obtaining and/or reviewing separately otained hiistory, ordering medications,tests, procedures, referring, communicating with other health doggy daycare activities director, indepentently interpreting results, counseling the patient and care coordination
[2023-01-23] MEDS: Normal Saline 1,000 ML 80 ML IV ×2 (05:41→17:54)
[2023-01-23 06:22] LABS: Abs Immature Grans 0.14 10^3/uL (0.0-0.06); Absolute Basophil Count 0.02 10^3/uL (0.0-0.2); Absolute Lymphocyte Count 0.58 10^3/uL (1.2-3.4); Absolute Monocyte Count 0.78 10^3/uL (0.1-0.8); Absolute Neutrophil Count 15.03 10^3/uL (1.2-6.7); Basophils % 0.1; Eosinophils % 0.4; HCT 40.8 % (40.0-50.0); Immature Grans % 0.8; Lymphocytes % 3.5; MCHC 34.3 % (32.0-36.0); MCV 85 fL (80-95); MPV 9.3 fL (8.0-11.0); Monocytes % 4.7; Neutrophils % 90.5; Platelet Count 219 10^3/uL (130-400); RBC 4.83 10^6/uL (4.36-5.78); RDW 13.5 % (11.8-14.1); RDW-SD 41.7 fL; WBC 16.61 10^3/uL (4.4-10.8)
[2023-01-23 06:24] LABS: Absolute Eosinophil Count 0.07 10^3/uL (0.0-0.7)
[2023-01-23 06:44] LABS: BUN 35 mg/dL (7-18); CREATININE 1.1 mg/dL (0.70-1.30); Chloride 101 mmol/L (98-107); Estimated GFR 74.96 (mL/min/1.73m2); Glucose 110 mg/dL (74-106); Potassium 4.2 mmol/L (3.5-5.1); Sodium 134 mmol/L (136-145)
[2023-01-23] MEDS: Dronabinol 2.5 MG CAP 5 MG PO ×2 (08:14→15:34)
[2023-01-23 08:15] VITALS: BP 97/70; PULSE 98; RESP 16; TEMP 36.5; O2SAT 93
--- NOTE | 2023-01-23 11:33 | NS.NUTBLAN_ITS ---
Date of service: 01/24/23 Time of Service: 11:25 Nutritional Consult ASSESSMENT: Fritz is a 62yo male admitted for fall/blunt head trauma and UTI, with generalized weakness/adult FTT. Bladder mass noted and being biopsied and suspected to be metastatic cancer. Upon visit Fritz looked notably thin with moderate muscle wasting noted in the temporal region, and has had a low oral intake at meals. He has had a 9.6% wt loss since his admission (64.2kg on 01/20 to 58.6kg today) and his albumin is low.. Diarrhea noted that has now transitioned to formed stools. Discussed concners for patients nutritional intake and offered oral supplements. He tried some active liquid protein adali ntrate and is found the taste acceptable. I also asked him if he would try oral nutrition supplements between meals twice a day and he preferred vanilla ensure as an option. At home he has been making his own meals and reports just one meal most days towards the early evening. He consumes convenient options often high in sodium. He relates he has not had a lot of energy for food preparation and doesn't eat much. Pt ordered regular diet with normal textures, however dietary staff will note to offer softer foods that he can manage with his poor dentition (missing his teeth). Pt with smoking and etoh regular use prior to admission. stimated nutrition needs: 1,908 kcals (MSJx1.2AF +250kcals per day for wt gain), 70.3g protein (1.2g/kg of current wt), and 1908 mL Fluid (1mL per required kcal). NUTRITIONAL DIAGNOSIS: Severe malnutrition related to chronic illness and lower food and nutrition- related knowledge, as evidenced by pt's low albumin, low BMI, significant wt loss, noted muscle wasting on nutrition focused physical exam, and self reported low oral intake over an extended amount of time. INTERVENTION: Mr Foster is agreeable to take 1 pkt per day of the active liquid protein concentrate (which has been ordered), as well as vanilla ensure supplements at 10am and 2pm nourishments. We reviewed trying to consume higher protein/kcal entrees first before drinks and side items on trays. Will initiate 3 day calorie count to estimate oral intake compared with requirements to gain weight - this will begin at supper meal 01/24 and end after supper meal on 9/16. Recommend daily weights and consideration of initiating complimentary enteral feedings to pt's intake to help maximize intake and wt gain potential. MONITORING AND EVALUATION: will monitor pt's intake via 3 day kcal count, labs, weight. Time Spent in Nutritional Counseling and Treatment: 30 minutes
--- NOTE | 2023-01-23 12:16 | W.PM.PROGNOT ---
Date of Service Date of service: 01/23/23 Time of Service: 12:16 Assessment and Plan Assessment and plan (1) Bladder mass: Status: Acute Assessment and plan: Records from [facility] were requested in the ED. He had a previous CT there. Dr Jimenez, urology, has evaluated patient. A bx of the bladder mass would be possible at [facility] if the pt decides to pursue this. Any [facility]bul[facility] Jimenez also mentioned that the right ureter would have to be stented in a retorgrade manner; also at a tertiary care center by IR. Pt stated he does desire to pursue the biopsy. Palliative consulted. (2) General weakness: Status: Acute Assessment and plan: Secondary to effects of likely metastatic cancer process and poor nutritional status. His brother did come to the hospital and states that Fritz has not been eating adequate amounts. Initiated marinol. (3) Fall: Status: Acute Assessment and plan: Secondary to weakness. (4) Adult failure to thrive: Status: Acute Assessment and plan: Likely metastatic cancer with poor appetite. Subjective Subjective Patient reports: no new complaints, tolerating a regular diet (Intake is poor) and afebrile; denies diarrhea, nausea, vomiting or shortness of breath Exam Narrative Exam Narrative: Gen: Thin and cachectic appearing. Sitting in recliner. HEENT: PERRL, no conjunctival injection. No facial deformities noted. CV: +S1/S2, No murmurs RESP: Clear. Nonlabored breathing. GI: Soft, Nontender/Nondistended Ext: No edema, calf tenderness, joint swelling or erythema. Skin: No rashes or lesions. Deep tissue injury with adjacent small open area of left-inner buttock; present on admission. Neuro: No focal motor deficits. Normal sensation to light touch. Psych: (AAO) x3. Affect is flat. Minimal input in conversation. Objective Last Vital Signs Temp 36.5 C 01/23/23 08:15 Pulse 98 H 01/23/23 08:15 Resp 16 01/23/23 08:15 BP 97/70 L 01/23/23 08:15 Pulse Ox 93 01/23/23 08:15 Laboratory Results - last 24 hr 01/22/23 01/22/23 01/23/23 12:17 13:05 06:00 WBC RBC Hgb Hct MCV MCH MCHC RDW Plt Count MPV Immature Gran % Neutrophils % Lymphocytes % Monocytes % Eosinophils % Basophils % Nucleated RBC % Absolute Neutrophils Absolute Lymphocytes Absolute Monocytes Absolute Eosinophils Absolute Basophils Sodium 133 L 134 L Potassium 4.3 4.2 Chloride 96 L 101 Carbon Dioxide 23.1 23.0 Anion Gap 13.9 H 10.0 BUN 49 H 35 H Creatinine 1.5 H 1.1 Est GFR (CKD-EPI 2020) 51.67 74.96 Glucose 111 H 110 H Calcium 11.0 H 10.0 Magnesium 2.1 Total Bilirubin 0.7 AST 15 ALT 12 L Alkaline Phosphatase 130 H Total Protein 7.5 Albumin 2.9 L TSH 4.20 H Free T4 1.14 Urine Color Red Urine Clarity Sl Cloudy Urine pH 6.0 Ur Specific [place] >= 1.030 H Urine Protein >=300 H Urine Ketones 15 H Urine Blood Large H Urine Nitrite Negative Urine Bilirubin Small H Urine Urobilinogen 0.2 Ur Leukocyte Esterase Small H Urine RBC >50 H Urine WBC Ur Epithelial Cells Not Applicable Urine Crystals Not Applicable Urine Bacteria Urine Mucus Not Applicable Ur Culture Indicated? Yes Urine Glucose Negative 01/23/23 06:00 WBC 16.61 H RBC 4.83 Hgb 14.0 D Hct 40.8 MCV 85 MCH 29.0 MCHC 34.3 RDW 13.5 Plt Count 219 MPV 9.3 Immature Gran % 0.8 Neutrophils % 90.5 Lymphocytes % 3.5 Monocytes % 4.7 Eosinophils % 0.4 Basophils % 0.1 Nucleated RBC % 0.0 Absolute Neutrophils 15.03 H Absolute Lymphocytes 0.58 L Absolute Monocytes 0.78 Absolute Eosinophils 0.07 Absolute Basophils 0.02 Sodium Potassium Chloride Carbon Dioxide Anion Gap BUN Creatinine Est GFR (CKD-EPI 2020) Glucose Calcium Magnesium Total Bilirubin AST ALT Alkaline Phosphatase Total Protein Albumin TSH Free T4 Urine Color Urine Clarity Urine pH Ur Specific [place] Urine Protein Urine Ketones Urine Blood Urine Nitrite Urine Bilirubin Urine Urobilinogen Ur Leukocyte Esterase Urine RBC Urine WBC Ur Epithelial Cells Urine Crystals Urine Bacteria Urine Mucus Ur Culture Indicated? Urine Glucose PAWSS Have you Been Recently Intoxicated or Drunk Within the Last 30 days?: Yes Have you Ever Experienced Previous Episodes of Alcohol Withdrawal?: No Have you ever Experienced Withdrawal Seizures?: No Have you ever Experienced Delirium Tremens(DT)s?: No Have you ever undergone Alcohol Rehabilitation Treatment (i.e, inpt ot outpatient treatment programs)?: No Have you ever Experienced Blackouts?: No Have you ever Combined Alcohol with other Downers within the last 90 days?: No Have you ever Combined Alcohol with any other Substance of Abuse during the last 90 days?: No Positive Blood Alcohol level on Presentation? [PCS.BAL]: No Evidence of Increased Autonomic Activity (i.e. HR>120, tremor, sweating, agitation, nausea)?: No Result: 1 Time Spent with Patient Time Spent with Patient: 25-34 minutes Time was spent: preparing to see the patient(eg.review tests), obtaining and/or reviewing separately otained hiistory, ordering medications,tests, procedures, referring, communicating with other health daycare worker, indepentently interpreting results, counseling the patient and care coordination
--- NOTE | 2023-01-23 12:45 | INITIAL_ITS ---
Date of service: 01/23/23 Time of Service: 12:45 Care Management Initial Assmt Initial Assessment REASON FOR HOSPITALIZATION:: Failure to thrive, leukocytosis PREVIOUS FUNCTIONAL STATUS/SOCIAL/FAMILY SUPPORTS:: Fritz lives in [facility] with his cousin, Hung, who has been caring for him on and off for about a year. He also spends time in [facility], where his ex , daughter and grandchild live. His brother, Luis Manuel, lives in [place], [place]. He states that his health has been declining for about ten years, but he has required more support in the last year. CURRENT FUNCTIONAL STATUS:: Fritz was sitting up in his chair when CM met with him today. He stated that he is feeling ok today, and has met several people; he is not sure if he has seen the hospitalist yet. He did report that the Urologist met with him, and per MD, he may have a cystoscopy with a biopsy to confirm the surgical pathology in his bladder. Per report, it is likely that Fritz has metastatic cancer. Fritz will meet with Palliative care today to his discuss goals of care. He will also be seen by Speech therapy, and CM recommended a PT consult to evaluate his functional mobility. CM will continue to follow. ADVANCE DIRECTIVES:: Not on file; Palliative care consulted. Has patient been provided with info about the portal/API?: Yes Did the patient sign up for the portal?: No CODE STATUS:: Full Code INSURANCE COVERAGE / FINANCIAL ISSUES:: JOSE CURRENT HOME/COMMUNITY SERVICES/EQUIPMENT:: None. PRIMARY CARE PHYSICIAN:: Mary Rosen POTENTIAL DISCHARGE NEEDS:: Evaluations for further needs, possible SNF placement. PATIENT/FAMILY EDUCATION NEEDS:: Review discharge instructions and limitations, discussion of self care needs including ask me three. ANTICIPATED BARRIERS TO DISCHARGE:: Fritz's cousin, who has been taking care of him recently, doesn't feel that he can care for him at home, although he did not have any community supports at that time. TRANSPORTATION:: Via private vehicle by family. PLAN:: Fritz is having further evaluations to help determine his discharge plan. He met with Urology today, and will meet with Palliative, Speech therapy, and PT. His transportation will depend on his disposition, but will likely be by family. He will follow up with his PCP and discharge plan of care. CM will continue to follow. PFSH All Active Problems General weakness (Acute) Urinary tract infection (Acute) Fall (Acute) Blunt head trauma (Acute) Adult failure to thrive (Acute) Hyperlipidemia (Acute) Hypertension (Chronic) Bladder mass (Acute) Social History Smoking/Tobacco Use Status: Current every day Tobacco Type: cigarettes Smoking risk assessment performed?: Yes Alcohol Intake: current Alcohol Intake frequency: 3 or more drinks per day Alcohol type: beer Drug use: Occasionally Substance use type: marijuana Housing: other What is your relationship status?: Panel score (0-1 are the most socially isolated patients): 0 Do you feel safe at home: Yes Do you feel safe in your relationship?: Yes
--- NOTE | 2023-01-23 13:55 | PCNE_ITS ---
Date of service: 01/23/23 Time of Service: 15:30 History of Present Illness Narrative: Fritz Schuster is a 62-year-old gentleman who was admitted to [facility] yesterday with generalized and progressive weakness and inability to care for himself. Poor historian and has not frequented our medical community often. He was seen in the ED 2 days prior to admission after falling and hitting his head. He requested discharge at that time. According to previous ED notes, records from outside hospital suggest that he likely has a history of major depression, possibly schizophrenia, throat cancer (age 43, did chemo, surgery and radiation at that time, treated on [facility]), possible bladder mass and perhaps seizures. As noted in previous clinical notes, somewhat unreliable historian. Timelines are differ depending on who he tells history 2. Pt reports he has had issues: -with increasing weakness and worsening urinary and incontinence. -ALso increasing trouble swallowing and eating. This started 20 years ago when he was treated for throat cancer. Bladder mass: Consult with Dr. Jimenez today. He writes in his note that bladder mass was recognized on imaging at [facility] at least a month ago. Please see urology discussion for further information. Dx on imaging a month ago in [place], pt cannot recall why or who. Was taking medications in the past , but stopped them a while back (Risperadol, statin, Had been admitted to [facility] (July 2022, admitted to this psychiatric hospital for 8 weeks or so, changed his meds. he stopped meds since then do to side effects). He was living up here, but went down to [place] because he has a [facility]. Thinks that he has had three [facility] admissions over the last year. Each time was for hearing voices. He is hearing voices and off for 27 years. He says that he is hearing a little bit of voices. Would take risperodol if offered. He did have some Extrapyramidal side effects. Currently has no counselor. Care Team: Primary Care physician: Mary Rosen, [facility]. Recently started there. Social HX: Case management notes reports that patient has been living with cousin Robin for the last 3 years. This house is off the grid, not hooked to water, using buckets, solar system for lighting. Heatin with wood. He sleeps on couch. Lives with various relatives at various times. Daughter Krystal lives on [facility]. Brother Luis Manuel lives locally. 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 Since then has lived on [facility]. ; children live on [facility] (1 [facility], one in [place]). 3 grandchildren. Youngest daughter of CF age 12 in 2008 1 brother lives in [place], [place] Hobbies:Non of these any longer: Plays guTripShaker, woodworking. These days: thinks a lot, no TV (no electricity). Not a lot. Smokes 1 PPD. EtOH: Light beer 1-2, stopped a month ago. Impression of currents health status: If I can't get a couple of health issues taken care of, I am done. 1. Being able to urinate, trouble starting steam. Occ dribbling or being incontinant 2. Stools: ALso gets fecal incontinence, when urinatin this happens. 3. Cleaning above messes up. What bothers you the most: Above health issues. What worries you the most: Worried that he might get homeless, as cousin is upset that he has had several accidents on carpet and everywhere. Goals: Be able to return to live at cousin's house in [facility] Current information preferences: Function: Ambulation: Nothing or cane ADLs: Independent iADLs: Hearing: Good Vision: Reading glasses. Vision not great, diplopia, chronic Cognition: Memory is in and out Driving: no, stopped in July (Police pulled his license when he did a U-turn, police put in medical loss of license.) Palliative Performance Scale % Ambulation Activity and Evidence of Disease Self Care Intake Level of Consciousness 100 Full Normal activity, no evidence of disease Full Normal Full 90 Full Normal activity, some evidence of disease Full Normal Full 80 Full Normal activity with effort, some evidence of disease Full Normal or reduced Full 70 Reduced Unable to do normal work, some evidence of disease Full Normal or reduced Full 60 Reduced Unable to do hobby or some housework, significant disease Occasional assist necessary Normal or reduced Full or confusion 50 Mainly sit/lie Unable to do any work, extensive disease Considerable assistance required Normal or reduced Full or confusion 40 Mainly in bed Unable to do any work, extensive disease Mainly assistance Normal or reduced Full, drowsy, or confusion 30 Totally bed bound Unable to do any work, extensive disease Total care Reduced Full, drowsy, or confusion 20 Totally bed bound Unable to do any work, extensive disease Total care Minimal sips Full, drowsy, or confusion 10 Totally bed bound Unable to do any work, extensive disease Total care Mouth care only Drowsy or coma 0 - - - - Patient Score: Spiritual history:Used to go to [employer]. Occasionally prays Palliative review of systems: Pain: Lower abd pain, central Dyspnea: Slight GI symptoms: Lower abdominal pain. Appetite:Shaky, no hungry, not eating much, feels full quickly.Lost 40 lbs over the year Depression: I think so, Anxiety: None Emotional Distress: Spiritual/Existential Distress: Labs: Cr: 1.1 today (1.5 yesterday) Liver panel: Normal Albumin: 2.9/3.1 CBC: Hemoglobin 14.0 Advanced Care Planning: Advanced Directive: Does not have. Health Care Agent: Brother Luis Manuel Foster in [place], [place]; Corry Hackett (ex-), daughter Krystal Foster to be able to be involved too. COLST:NOne Limitations: Assessment and Plan Assessment and plan (1) Palliative care encounter: Status: Acute Assessment and plan: 62-year-old gentleman, somewhat poor historian and fragmented care between [place], [place] and [place] who presents with urinary and fecal incontinence and 40 pound weight loss over the last year and found to have a large bladder mass causing unilateral hydronephrosis with hydroureter. Also s ome sort of major mental illness ongoing (may be schizophrenia, schizoaffective disorder, he denies bipolar disorder). His living situation is also a bit precarious, although he has been living in the same place on and off for 3 years. Goals of care/advance care planning: Patient's goal of care is to improve his incontinence so he is no longer making a mess all over and feels comfortable moving back into his cousin [facility]. He is also interested in having this mass evaluated and treated. However he is also tired and worried if he cannot get this treated , what will happen to him. We discussed the procedure of CPaR, actual mechanical process, rate of success in restoring heartbeat, short and long-term side effects in survivors (including likely decreased physical and cognitive functioning). After discussion and consideration, he would like to be DNR. He seems to have capacity around this decision. However he would like a trial of intubation should he have respiratory failure. He would still like to be transferred, treated and evaluated at the hospital for any illness short of having CPR. COLST form was completed today reflecting this. Regarding healthcare agent, he would want his brother Luis Manuel Newsome to be his healthcare agent. He would want his ex- to be alternate (see HPI) Regarding evaluation of his bladder mass, he would like to move forward with c ystoscopy with biopsy. He will be meeting again with Dr. Jimenez soon. He is concerned should he need chemotherapy. He found radiation and chemotherapy when he had his throat cancer really awful and painful, he needed a feeding tube. We discussed that chemotherapy for a bladder cancer would be different, hopefully not as painful and certainly he would be able to continue eating. On the other hand he is older than he was when he was diagnosed and treated for throat cancer. Supportive counseling around this. He looks forward to finding out more about what treatment might be offered. Regarding his mental illness: Does report 3 hospitalizations to [facility], with which Internet says is a mental health facility. Says that this was over the past year (not reliable historian), low most recently for 6 weeks. Says he was discharged on what he thinks is Risperdal. He discontinued it because he does not like taking medicines. I made several other atypical antipsychotics and lithium and he has never been on any of those, only the Risperdal. He does have a history of hallucinations and has been having some low-grade hallucinations. However at this point he does not feel he needs to be back on the Risperdal. Treating physician should be aware of this and consider resuming Risperdal should the hallucinations get worse. Sounds like there is also significant component of depression. He says he has not been on any antidepressants in the past. There may be some old records available through the [facility], as patient says they were going to request some old records. Regarding disposition: During my conversation today, his current living situation is actually more longstanding than we initially thought. He has been living with cousin Camden for the last 3 years. Unfortunately the home has no running water. There is some electricity from solar panels. Patient lost his license about a year ago. He is not currently signed up for RCT. If he were to need chemotherapy, he would hope to live with Emily and go to local oncology clinic. Case management is going to work with him to see what disposition would work best for him. Sounds like patient would prefer to go back to [facility] if he had some improved urinary and fecal incontinence. He would benefit from additional support services, including running water. (2) Advanced care planning/counseling discussion: Status: Acute Assessment and plan: 16 to 30 minutes spent today on Advance Care Planning. Patient and family participated voluntarily. Advance care planning may include (not limited to) explanation and discussion of advance directives, choosing and appointing healthcare agents, alternatives to various ACP tools, discussion of (and if indicated, completion of) COLST form, discussion of patient's values and overall goals for treatment, palliative and disease directive care options, ways to avoid hospital readmission including hospice discussions, care preferences should the patient's several other adverse health events.See today's palliative care note for additional information. (3) Bladder mass: Status: Acute (4) Schizoaffective disorder: Status: Acute (5) Abnormal weight loss: Status: Acute [facility] All Active Problems (Updated 01/23/23 @ 16:49 by Marti Lopez MD) Abnormal weight loss (Acute) Schizoaffective disorder (Acute) Pt reports possible schizophrenia, hx hallucinations. Unclear if this is valid dx. No old records available. reports muliple admissions to [facility] Advanced care planning/counseling discussion (Acute) Palliative care encounter (Acute) General weakness (Acute) Urinary tract infection (Acute) Fall (Acute) Blunt head trauma (Acute) Adult failure to thrive (Acute) Hyperlipidemia (Acute) Hypertension (Chronic) Bladder mass (Acute) Social History Smoking/Tobacco Use Status: Current every day Tobacco Type: cigarettes Smoking risk assessment performed?: Yes Alcohol Intake: current Alcohol Intake frequency: 3 or more drinks per day Alcohol type: beer Drug use: Occasionally Substance use type: marijuana Housing: other What is your relationship status?: Panel score (0-1 are the most socially isolated patients): 0 Do you feel safe at home: Yes Do you feel safe in your relationship?: Yes Exam Narrative Exam Narrative: Thin, quiet, pleasant and cooperative gentleman. Somewhat poor eye contact. Speech is fluid. Several times he points out that I have asked a question before and he is upset he has answered again. He is alert. He is oriented to date, month, year, president. Neuro General: patient oriented x3 Results Last Vital Signs Temp 36.5 C 01/23/23 08:15 Pulse 98 H 01/23/23 08:15 Resp 16 01/23/23 08:15 BP 97/70 L 01/23/23 08:15 Pulse Ox 93 01/23/23 08:15 Labs 01/23/23 06:00 01/23/23 06:00 Labs: Laboratory Results - last 24 hr 01/23/23 01/23/23 06:00 06:00 WBC 16.61 H RBC 4.83 Hgb 14.0 D Hct 40.8 MCV 85 MCH 29.0 MCHC 34.3 RDW 13.5 Plt Count 219 MPV 9.3 Immature Gran % 0.8 Neutrophils % 90.5 Lymphocytes % 3.5 Monocytes % 4.7 Eosinophils % 0.4 Basophils % 0.1 Nucleated RBC % 0.0 Absolute Neutrophils 15.03 H Absolute Lymphocytes 0.58 L Absolute Monocytes 0.78 Absolute Eosinophils 0.07 Absolute Basophils 0.02 Sodium 134 L Potassium 4.2 Chloride 101 Carbon Dioxide 23.0 Anion Gap 10.0 BUN 35 H Creatinine 1.1 Est GFR (CKD-EPI 2020) 74.96 Glucose 110 H Calcium 10.0
--- NOTE | 2023-01-23 14:38 | PHA.REVIEW2 ---
Pharmacy Admission Review Admission Clinical Review Admission Pharmacy Review: (Updated 01/22/23 @ 14:42 by Tim Alcantar DO) General weakness (Acute) Urinary tract infection (Acute) Fall (Acute) Adult failure to thrive (Acute) Bladder mass (Acute) NSAIDS (Non-Steroidal Anti-Inflamma Allergy (Unknown, Verified 01/22/23 11:48) Resuscitation Status Full Code Height 5 ft 10 in Weight 60.8 kg Comments Comments/Follow Ups: Watch BP, HR, SCr, labs, for culture results, for serology results and med changes (possible renal dose adjustments). Pharmacy Admission Review Renal Dosing Renal Dosing: BUN 35 mg/dL (7-18) H 01/23/23 06:00 Creatinine 1.1 mg/dL (0.70-1.30) 01/23/23 06:00 Medications needing adjustments: Reviewed (Crcl ~58 mL/min current meds okay) Anticoagulation Anticoagulation: Hgb 14.0 g/dL (13.5-17.5) D 01/23/23 06:00 Hct 40.8 % (40.0-50.0) 01/23/23 06:00 Plt Count 219 10^3/uL (130-400) 01/23/23 06:00 Creatinine 1.1 mg/dL (0.70-1.30) 01/23/23 06:00 DVT Prophylaxis: Reviewed (SCDs ordered, fall risk per provider) Opiate Usage Evaluate Pain Scale/Pains Meds: N/A Relevant Labs Relevant Labs: Sodium 134 mmol/L (136-145) L 01/23/23 06:00 Potassium 4.2 mmol/L (3.5-5.1) 01/23/23 06:00 Chloride 101 mmol/L (98-107) 01/23/23 06:00 Magnesium 2.1 mg/dL (1.8-2.4) 01/22/23 12:17 Electrolytes, C-Reactive P, ESR: Reviewed DM Control DM Control: Reviewed (No DM noted in pt's medical history, no A1c on file) Cardiac Review BP, HR, EF%: Reviewed (BP has been up and down some this admission, HR has been normal to elevated.) QTc Review QTc: N/A IV to PO Switch IV Medications: Reviewed Home Meds Home Med List reviewed: Intervened (Pt's medication bottles brought to pharmacy. Entered on home med list with the directions on the bottles. Pt stated he was taking his meds, but it was unclear how he was taking them or when he last took them.) Relevent Home Meds Not ordered & why?: docusate (PRN), levofloxacin (no source of infection per provider, UC from 01/20 grew gram positive severo, UC from 01/22 no growth @24hours) Current Meds Current Medication Order Review: Reviewed Comments Comments/Follow Ups: Watch BP, HR, SCr, labs, for culture results, for serology results and med changes (possible renal dose adjustments).
[2023-01-23 15:19] VITALS: BP 113/72; PULSE 86; TEMP 35.9; O2SAT 95
[2023-01-23 15:24] LABS: C Diff PCR Negative (Negative)
[2023-01-23] MEDS: Acetaminophen 325 MG TAB PO ×2 (15:35→23:36)
--- NOTE | 2023-01-23 16:56 | IN_ITS ---
PT Notes Visit Reasons: FTT,leukocytosis Physical Therapy Inpatient Initial Evaluation Date: 01/23/2023 Referring Doctor: Camden Vela MD PT Orders: PT CONSULT: Eval/treat Precautions: Fall. Standard. Activity as tolerated. Patient Profile/Admitting Diagnosis: Fritz is a 62-year-old old male admitted on 01/22/2023 for management of generalized weakness, fall, adult failure to thrive, and bladder mass. PMHX: All Active Problems? General weakness (Acute) Urinary tract infection (Acute) Fall (Acute) Blunt head trauma (Acute) Adult failure to thrive (Acute) Hyperlipidemia (Acute) Hypertension (Chronic) Bladder mass (Acute) Social History/Home Situation: Lives with cousin in a private home. Occasionally use a SPC. No longer drives. Able to prepare his own meals and has been independent with bathing and dressing. Cousin works during the day. Equipment Owned/DME: SPC Subjective: Reported pain in his back. Unsure where he got the red harrison on his left forearm. States that he has had this smoker's cough for quite awhile now. Agreeable to walking and moving with PT this afternoon. Patient added that he has fallen 3x in the past year. Objective: General Observation: Resting in bed. L medial forearm red and swollen. IV access through R UE. Mental Status: Alert and oriented as to person, place, time, and purpose. Able to pay attention, focus, and respond appropriately. Pain: Minimal pain in back Vital Signs: Closely monitored by nursing staff ROM: Right Upper Extremity: Shoulder Flexion WFL. Shoulder abduction WFL. Elbow flexion WFL. Wrist flexion WFL. Functional opening and closing of hand WFL. Left Upper Extremity: Shoulder Flexion WFL. Shoulder abduction WFL. Elbow flexion WFL. Wrist flexion WFL. Functional opening and closing of hand WFL. Right Lower Extremity: Hip flexion WFL. Hip abduction WFL. Knee flexion WFL. Ankle dorsiflexion WFL. Ankle plantarflexion WFL. Left Lower Extremity: Hip flexion WFL. Hip abduction WFL. Knee flexion WFL. Ankle dorsiflexion WFL. Ankle plantarflexion WFL. Strength: Right Upper Extremity: Shoulder flexors 4-/5. Shoulder abductors 4-/5. Elbow flexors 4-/5. Elbow extensors 4-/5. Robotics Mechanic strong. Left Upper Extremity: Shoulder flexors 4-/5. Shoulder abductors 4-/5. Elbow flexors 4-/5. Elbow extensors 4-/5. Robotics Mechanic strong. Right Lower Extremity: Hip flexors 4-/5. Hip abductors 4-/5. Knee flexors 4-/5. Knee extensors 4-/5. Ankle dorsiflexors 4-/5. Ankle plantarflexors 4-/5. Left Lower Extremity: Hip flexors 4-/5. Hip abductors 4-/5. Knee flexors 4-/5. Knee extensors 4-/5. Ankle dorsiflexors 4-/5. Ankle plantarflexors 4-/5. Bed Mobility/Transfers: Supine to sit contact guard assist Sit to stand with minimal assist and minimal cueing to use B hands to push off EOB for increased stability Stand to sit with minimal assist and minimal cueing to use B hands to to reach behind arm rest of chair for increased stability Bed to reclining chair minimal assist and minimal cueing to use B hands to to reach behind arm rest of chair for increased stability Gait: Instructed patient with level surface ambulation of 40 feet requiring minimal assist. Julissa decreased. Needed to slow down during directional change. Mildly unsteady. Moderate cueing provided for AD management-- patient insisted that walker height not be changed despite it appearing lower than it should be based on his height. Patient also needed cueing to slow down during turning to reduce fall risk and minimize lateral swaying. Balance: Static Sitting: Normal Dynamic Sitting: Normla Static Standing: Fair Dynamic Standing: Fair Special Tests: Mobility Limitations Standardized Measure [facility] 6 clicks Basic Mobility Inpatient Short Form: Raw Score: 18 CMS Score: 47% deficit 4-Stage Balance Test: Unable to maintain all 4 positions, feet together, semi-tandem, full tandem, and one-legged stance for 10 seconds indicating high fall risk without use of AD. Informed Consent/Education: Patient was instructed in purpose of PT consult and plan of care. Agreeable to proceed with established PT POC to achieve personal goals. Assessment: Functional mobility decline, generalized weakness, and balance deficits all decrease ability of patient to safely thrive at home alone. Cousin works during the day and patient will not have anybody for support as needed. Patient presents with clinical signs and symptoms consistent with current/admitting diagnoses that have resulted to mobility limitations, gait instability, generalized weakness, and overall ADL decline as demonstrated by the following impairment level findings: 1. Decreased strength to B UE/LE major muscle groups 2. Impaired sitting/standing balance 3. Impaired activity tolerance 4. Pain in back Impairments are contributing to the following functional limitations: 1. Decline in bed mobility skills 2. Decline in transfer skills 3. Difficulty with ambulation without assistive device and physical assistance 4. Increased completion time for mobility ADL performance 5. Increased risk for falls 6. Difficulty with managing steps alone safely Patient is assessed as a 17367 moderate complexity based on the following: History: 62-year-old male with past medical history as indicated above Examination: Demonstrable impairment in strength, balance, and mobility level with underlying impairments and functional limitations as exhibited above as well as deficit score of 47% utilizing the [facility] Mobility Inpatient Short Form Presentation: Evolving Decision Makin moderate complexity Goals: Goals X1 week 1. Supine-Sit independent 2. Sit-Supine independent 3. Sit-Stand independent 4. Stand-Sit independent with FWW 5. Bed-Chair independent with FWW 6. Chair-Bed independent with FWW 7. Independent gait on level surface with use of FWW for at least 300 feet without report of pain nor dyspnea 8. Independent stair negotiation while holding onto B rails for at least 5 steps without report of pain nor dyspnea 9. Good static and dynamic standing balance/tolerance Plan of Care/Treatment Plan: 1-2x/day, 7 days/week x 1 week. Plan of care has been reviewed with the OPTICAL INSTRUMENT REPAIRER providing the service under Physical Therapy direction. Initiate Physical Therapy intervention for pain management as needed, strengthening, bed mobility, transfers, gait, stairs, balance training, and use of assistive device. DISCHARGE RECOMMENDATIONS: [] Home with no services [] [] Home with services [specify] [] Home with outpatient PT [] [] SNF for continued rehabilitation [] [] Correction Care [] [] SNF versus LTC based on ability to participate and progress [] [X] HH PT vs SNF based on progress towards goals and availability of caregivers TREATMENT CODE/TIME: 09029 x 17 minutes beginning at 16:32 PM. Thank you for the opportunity to participate in the care of this patient. Meghan Pope PT, DPT, CLT [facility], [place]
[2023-01-23] MEDS: Protein Nutritional Supplement 16 GM 1 OUNCE PACKET PO (18:45)
[2023-01-23 23:24] VITALS: BP 112/69; PULSE 76; RESP 18; TEMP 36.5; O2SAT 96
[2023-01-23] MEDS: LORazepam 0.5 MG TAB PO (23:36)
[2023-01-24] MEDS: Normal Saline 1,000 ML 80 ML IV ×2 (06:23→20:46)
[2023-01-24 06:48] LABS: Abs Immature Grans 0.09 10^3/uL (0.0-0.06); Absolute Basophil Count 0.01 10^3/uL (0.0-0.2); Absolute Eosinophil Count 0.16 10^3/uL (0.0-0.7); Absolute Lymphocyte Count 0.65 10^3/uL (1.2-3.4); Absolute Monocyte Count 0.77 10^3/uL (0.1-0.8); Absolute Neutrophil Count 12.79 10^3/uL (1.2-6.7); Basophils % 0.1; Eosinophils % 1.1; HCT 37.8 % (40.0-50.0); Immature Grans % 0.6; Lymphocytes % 4.5; MCH 29.3 pg (27.0-33.0); MCHC 34.4 % (32.0-36.0); MCV 85 fL (80-95); MPV 10.1 fL (8.0-11.0); Monocytes % 5.3; Neutrophils % 88.4; Platelet Count 202 10^3/uL (130-400); RBC 4.43 10^6/uL (4.36-5.78); RDW 13.6 % (11.8-14.1); RDW-SD 42.5 fL; WBC 14.47 10^3/uL (4.4-10.8)
[2023-01-24 07:17] VITALS: BP 98/62; PULSE 67; TEMP 35.9; O2SAT 98
[2023-01-24] MEDS: Dronabinol 2.5 MG CAP 5 MG PO ×2 (07:46→15:39)
--- NOTE | 2023-01-24 09:34 | PDOC.CMPRO ---
Date of service: 01/24/23 Time of Service: 09:34 Care Management Progress Note Progress Note Text Progress Note Text: S/O: Fritz was sitting up in his chair when CM met with him. His brother, Luis Manuel was visiting. Yesterday CM asked Access to review his insurance, and found that Fritz has MCR, which was added to his chart. CM discussed this with Fritz and Luis Manuel, stating that this will help support Fritz going to a SNF for rehab. Fritz reported that he would prefer to remain local, and asked that referrals are sent to [facility], as well as the [facility]. CM sent the referrals, as requested. Luis Manuel brought a [facility] application in and asked for assistance; CM will provide support in completing. CM will continue to follow. A: Fritz is a 62 year old male admitted to [facility] on 01/22/23 for failure to thrive, leukocytosis. P: Fritz may require a short term rehab stay at a SNF, and he is agreeable to this plan. CM will send referrals to facilities of his choice. He will likely transport via private vehicle vs facility w/c van. He will follow up with his PCP and discharge plan of care. CM will continue to follow.
--- NOTE | 2023-01-24 11:25 | PTTR_ITS ---
Date of service: 01/24/23 Time of Service: 11:22 PT Notes Visit Reasons: FTT,leukocytosis Inpatient Physical Therapy Treatment Note [facility] Date: 01/24/23 PRECAUTIONS: Fall, standard, activity as tolerated. SUBJECTIVE: patient does not feel up to therapy. Agrees to participate after some encouragement. OBJECTIVE: Supine in bed, agreeable to therapy.? PAIN: yes. Reports everything hurts. Indicated primarily pelvis. ? VITALS: monitored by nursing staff. ? BED MOBILITY/TRANSFERS? Rolling L/R: min assist Supine-sit: mod assist? Sit-supine: min assist? Sit-stand: CGA ? Stand-sit: CGA ? Bed-Chair: CGA? Chair-bed: CGA ? Therapeutic Exercises ([id number]): Direct one-on-one instruction in therapeutic exercises to develop strength, endurance, range of motion and flexibility. ? Exercises: * LAQ's - verbal and visual cues to achieve appropriate speed, full ROM * ankle pumps * marching - verbal and visual cues for appropriate speed, maximum ROM Patient declined rurther exercise for the a.m. ?Ambulation ? Assistive Device: FWW? Weight bearing: full Assist: CGA, which patient stated would not be necessary. It proved to be an abundance of caution. ? Distance:? 80 feet ? Deviation: patient leans heavily on walker. Reduced stride length, reduced step height. Patient declined to continued. ? Provided skilled instruction in proper exercise performance Provided skilled manual cues to facilitate proper muscle recruitment and/or form: see above. ASSESSMENT:? patient barely tolerates therapy, makes it abundantly clear that he would rather not participate. Unclear whether this is patient's baseline or due to pain or some other cause. PLAN: Continue global strengthening per plan of care until patient is medically cleared for discharge. TREATMENT CODE/TIME: 8 minutes beginning at 11:22 and 15 minutes beginning at 15:04
--- NOTE | 2023-01-24 13:18 | W.SPSTE ---
Date of service: 01/24/23 Time of Service: 13:18 Subjective Clinical (Bedside) Swallow Evaluation Speech Language Pathology Patient referred for clinical swallow evaluation from Dr Vela given recent significant weight loss and hx throat cancer with surgery, radiation, and chemotherapy, requiring a feeding tube during and after treatment. Precautions: Fall, Standard, DNR SUBJECTIVE: Patient received alert/awake, agreeable to evaluation, able to communicate wants/needs effectively; requires support for comprehension of recommendations for safe p.o. intake upon discharge once deemed medically stable.? IMPRESSIONS ? HPI: Pt is a 62 year old M admitted with abnormal weight loss, generalized progressive weakness, recent fall, and bladder mass likely metastatic per Urology. Also with hx of major depression and possible schizoaffective disorder with auditory hallucinations. Predisposing dysphagia risk factors: prior throat cancer with surgery, radiotherapy and chemotherapy, potential for late developing radiation fibrosis. Clinical signs of possible chronic dysphagia: weight loss Precipitating dysphagia risk factors / triggering event: progressive weakness ? IMPRESSIONS & PLAN: Patient presents with suspected mild-moderate [id number]-[id number] oral-pharyngeal dysphagia in setting of remote history of throat cancer with chemo-radiotherapy. Suspect acute exacerbation possibly in setting of late fibrosis developing from prior cancer tx, vs generalized weakness and confusion. He is with reduced tolerance of thin liquids, appears to better tolerate mildly thickened liquids and receptive to thickened liquids during meals. Provided rationale for improving frequency and diligence with oral care in order to enable thin liquids (water only) between meals. Edentulousness and dry mouth are complicating factors, and suspect he may be experiencing some degree of pharyngeal stasis, reflected in recommendations below. Would suggest MBSS, pending patient goals of care, either as inpatient (if still admitted later this week) or as outpatient upon discharge to SNF. He should be followed by LOG HANDLING EQUIPMENT OPERATOR either or SNF at discharge location. Further LOG HANDLING EQUIPMENT OPERATOR services: inpatient / patient to be followed while on unit, custodial upon discharge with LOG HANDLING EQUIPMENT OPERATOR services recommended Instrumentation: ? VFSE/MBSS ? While on unit vs Outpatient? Diet Texture Modification(s): IDDSI Level(s) SOLIDS 6-Soft & Bite-Sized Solids with added moisture LIQUIDS 2-Mildly Thick Liquids DURING MEALS 0-Thin Liquids are OK to give between meals with thorough oral care occurring as outlined below. Medication Intake: Whole or crushed, as able, with tsp PUREE Alter medications only as advised by MD or Pharmacist RISK MANAGEMENT: HOB upright as tolerated; upright for all PO intake. Encourage physical mobility as tolerated. Oral hygiene q4h/every 4 hours vs before/after PO intake, using friction with toothbrush on all oral structures as tolerated ? Level of Assistance/Supervision: Intermittent supervision for all PO intake PO intake only when awake/alert? Strategies/Adaptations/Assistive Equipment: Reduce auditory and/or visual distractions when eating Provide verbal and/or visual cues to use recommended strategies Small sips and bites when eating Swallow between bites Alternate intake of liquids and solids Posture/Positioning Needs: Maintain upright position at least 30 minutes after meals Avoid meals/snacks 2-3 hours prior to reclining/sleeping PFSH All Active Problems? General weakness (Acute) Urinary tract infection (Acute) Fall (Acute) Blunt head trauma (Acute) Adult failure to thrive (Acute) Hyperlipidemia (Acute) Hypertension (Chronic) Bladder mass (Acute) ? 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 Dentition ?Edentulous without dentures ? Oral Mucosa ? Dry ? Poor oral care ? CN V - Trigeminal ?Jaw Movement ? WFL no sign of trismus, no pain reported ? CN VII ? Labial/Facial ? WFL ? CN IX ? Palate ? WFL ? CN X ? Laryngeal ? Vocal quality ? WFL ? vs ? Abnormal loudness ? Volitional cough ? Mildly Weak ? CN XII ? Lingual ? WFL ? Volitional Swallow ? Suspect delayed onset of swallow ? Food items tested: ?? IDDSI 0: water via straw, cup edge, single and consecutive sips IDDSI 2: mildly thickened water via cup edge, single and consecutive sip IDDSI 7: Egg salad sandwich, x 2 bites Behaviors: Patient refusing further solid trials after 2 bites sandwich. Noting persistent impulsive sip size with liquids despite re-instruction. Oral phase: Significantly prolonged mastication Anterior oral fixation Reduced rotary pattern Residue - mild with solids Pharyngeal phase: Cough after swallow consistent with thin liquids, immediate or short delay after 3 oz over multiple sips with thickened, 1x delayed cough productive of phlegm Provided education to: Patient, Nursing Topics Addressed: anatomy/physiology of swallowing mechanism, overt s/sx to monitor for re: potential aspiration of food / liquids, recommendations for improved oral care, relationship between respiratory function changes and deglutition, Rationale for recommendations as outlined below, Other Outcome: Needs review/reinforcement Goals: Patient will tolerate safest/least restrictive diet of soft/bite sized solids (with sauces/gravies added) and mildly thickened liquids without s/sx aspiration. Patient/caregiver will be independent with aspiration precautions, diet modifications, and safe swallowing strategies. LOG HANDLING EQUIPMENT OPERATOR CPT Code: 22098 Clinical Swallowing Evaluation Time spent: 30 min Coding Diagnoses CPT Codes EVALUATE SWALLOWING FUNCTION - 53613 ([id number])
--- NOTE | 2023-01-24 13:22 | W.PM.PROGNOT ---
Date of Service Date of service: 01/24/23 Time of Service: : Assessment and Plan Assessment and plan (1) Bladder mass: Status: Acute Assessment and plan: Records from [facility] were requested in the ED. He had a previous CT there. Dr Jimenez, urology, has evaluated patient. A bx of the bladder mass would be possible at [facility] if the pt decides to pursue this. Any excision/debulking would need to be done at a [facility]. Dr Jimenez also mentioned that the right ureter would have to be stented in a retorgrade manner; also at a tertiary care center by IR. Pt stated he does desire to pursue the biopsy. Palliative consulted. (2) General weakness: Status: Acute Assessment and plan: Secondary to effects of likely metastatic cancer process and poor nutritional status. His brother did come to the hospital and states that Fritz has not been eating adequate amounts. Initiated marinol. Nutrition consulted and advice given. Liquid protein daily initiated. (3) Fall: Status: Acute Assessment and plan: Secondary to weakness. (4) Adult failure to thrive: Status: Acute Assessment and plan: Likely metastatic cancer with poor appetite. Speech consulted. Noted to do better on thickened liquids. A formal swallow study would be beneficial; possibly this Sunday if still inpt or could be outpt. (5) Discharge planning issues: Status: Acute Assessment and plan: Noted: retention manager found that he has Medicare. He is agreeable to SNF placement. Referrals sent. Subjective Subjective Patient reports: no new complaints and afebrile; denies diarrhea, nausea, vomiting or shortness of breath Exam Narrative Exam Narrative: Gen: Thin and cachectic appearing. Sitting in recliner. Speech therapy evaluating pt. HEENT: PERRL, no conjunctival injection. No facial deformities noted. CV: +S1/S2, No murmurs RESP: Clear. Nonlabored breathing. GI: Soft, Nontender/Nondistended Ext: No edema, calf tenderness, joint swelling or erythema. Neuro: No focal motor deficits. Normal sensation to light touch. Psych: (AAO) x3. Affect is flat. Minimally conversational Objective Last Vital Signs Temp 35.9 C L 01/24/23 07:17 Pulse 67 01/24/23 07:17 Resp 18 01/23/23 23:24 BP 98/62 L 01/24/23 07:17 Pulse Ox 98 01/24/23 07:17 Laboratory Results - last 24 hr 01/23/23 01/24/23 14:25 06:05 WBC 14.47 H RBC 4.43 Hgb 13.0 L Hct 37.8 L MCV 85 MCH 29.3 MCHC 34.4 RDW 13.6 Plt Count 202 MPV 10.1 Immature Gran % 0.6 Neutrophils % 88.4 Lymphocytes % 4.5 Monocytes % 5.3 Eosinophils % 1.1 Basophils % 0.1 Nucleated RBC % 0.0 Absolute Neutrophils 12.79 H Absolute Lymphocytes 0.65 L Absolute Monocytes 0.77 Absolute Eosinophils 0.16 Absolute Basophils 0.01 Stl C.difficile Tox PCR Negative PAWSS Have you Been Recently Intoxicated or Drunk Within the Last 30 days?: Yes Have you Ever Experienced Previous Episodes of Alcohol Withdrawal?: No Have you ever Experienced Withdrawal Seizures?: No Have you ever Experienced Delirium Tremens(DT)s?: No Have you ever undergone Alcohol Rehabilitation Treatment (i.e, inpt ot outpatient treatment programs)?: No Have you ever Experienced Blackouts?: No Have you ever Combined Alcohol with other Downers within the last 90 days?: No Have you ever Combined Alcohol with any other Substance of Abuse during the last 90 days?: No Positive Blood Alcohol level on Presentation? [PCS.BAL]: No Evidence of Increased Autonomic Activity (i.e. HR>120, tremor, sweating, agitation, nausea)?: No Result: 1 Time Spent with Patient Time Spent with Patient: 25-34 minutes Time was spent: preparing to see the patient(eg.review tests), obtaining and/or reviewing separately otained hiistory, ordering medications,tests, procedures, referring, communicating with other health home care attendant, indepentently interpreting results, counseling the patient and care coordination
--- NOTE | 2023-01-24 13:55 | PTTR_ITS ---
Date of service: 01/24/23 Time of Service: 11:22 PT Notes Visit Reasons: FTT,leukocytosis Inpatient Physical Therapy Treatment Note [facility] Date: 01/24/23 PRECAUTIONS: Fall. Standard. Activity as tolerated. SUBJECTIVE: Morning: Patient too tired to participate in therapy. Declines to walk. Afternoon: Patient therapied out. When asked who he has seen for therapy today patient reports you. TIFFANIE Anthony present, encourages patient to participate in therapy. OBJECTIVE: Sitting up in recliner, begrudgingly agreeable to therapy x2.? PAIN: Yes. Patient reports feeling like something is broken in his pelvis. VITALS: closely monitored by nursing staff. ? ? ? BED MOBILITY/TRANSFERS? Sit-stand: SBA ? Stand-sit: SBA? Bed-Chair: SBA ? Chair-bed: SBA ? Therapeutic Exercises ([id number]): Direct one-on-one instruction in therapeutic exercises to develop strength, endurance, range of motion and flexibility. ? Exercises: am: * 10 toe raises * 10 heel raises * 10 quad sets x5 second hold * 10 marches * 10 LAQ * 10 glute set x5 second hold Verbal, visual and tactile cues throughout for appropriate speed, form, muscle recruitment. Facilitation of quads, glutes. ?Ambulation ? Assistive Device: FWW? Weight bearing: full Assist: CGA as a formality. Patient appears very steady.? Distance:? 50 feet? Deviation: Adequate step height, adequate and symmetrical stride length, adequate heel strike. No LOB, no SOB. Patient did report that this therapist really won't need gait belt, consented to wear it this once. ? Provided skilled instruction in proper exercise performance Provided skilled manual cues to facilitate proper muscle recruitment and/or form: see above. ASSESSMENT:? Patient appears to tolerate therapy well; no SOB, reports pain about the same at end of therapy vs beginning. PLAN: Continue global strengthening per plan of care until patient is medically cleared for discharge. TREATMENT CODE/TIME: 8 minutes beginning at 11:22, 15 minutes beginning at 15:04
--- NOTE | 2023-01-24 14:22 | CHAPLAIN ---
Fritz was up in the chair when I visited. He had just finished giving his food order to dietary staff. Fritz told me he live around here years ago, then lived on the [facility] for a long time before coming back to the [facility]. He said he's had friends, neighbors and family (cousin and brother) and visit him here. I will continue to visit.
[2023-01-24 15:11] VITALS: BP 116/74; PULSE 95; RESP 18; TEMP 36.4; O2SAT 99
[2023-01-24] MEDS: LORazepam 0.5 MG TAB PO (21:47)
[2023-01-24 23:29] VITALS: BP 126/72; PULSE 87; RESP 18; TEMP 36.6; O2SAT 95
--- NOTE | 2023-01-25 03:13 | NUR.NOTE ---
Assessment Note upon peroforming bedside rounding. Pt awake at 0300. He requested me to help him get clean. without hesitation, i gathered the supplies. in the event of turning him i noticed his previous mepelex pad was partially torn off. This meplex had been in place since the beginning of my shift on 01/24/23. this partially torn meplex revealed x2 dime size stage 2 pressure injuries on the patients rigt buttock. upon recognition. new mepelex cut to fit his wound. Nursing Note:
[2023-01-25] MEDS: Normal Saline 1,000 ML 80 ML IV (04:56)
[2023-01-25 07:05] VITALS: BP 134/82; PULSE 79; RESP 18; TEMP 36.5; O2SAT 95
[2023-01-25] MEDS: Dronabinol 2.5 MG CAP 5 MG PO ×2 (08:00→16:24)
[2023-01-25 09:15] LABS: Anion Gap 7.4 mmol/L (3-11); BUN 23 mg/dL (7-18); CO2 24.6 mmol/L (21.0-32.0); CREATININE 0.7 mg/dL (0.70-1.30); Calcium 9.4 mg/dL (8.5-10.1); Chloride 105 mmol/L (98-107); Estimated GFR 102.89 (mL/min/1.73m2); Glucose 110 mg/dL (74-106); Potassium 3.7 mmol/L (3.5-5.1); Sodium 137 mmol/L (136-145)
--- NOTE | 2023-01-25 10:07 | PDOC.CMPRO ---
Date of service: 01/25/23 Time of Service: 10:07 Care Management Progress Note Progress Note Text Progress Note Text: S/O: Fritz was sitting up in bed eating lunch when CM met with him. He states that he is feeling pretty well but was unable to work with PT this morning because his back hurt. He is going to retry later today. He accepted a bed at [facility] and plans to discharge there when medically ready. Per provider, pt will need a scope with Dr. Jimenez, awaiting a determination if this is going to be done inpatient vs. outpatient. CM will follow. A: Fritz is a 62 year old male admitted to [facility] on 01/22/23 for failure to thrive, leukocytosis. P: Fritz may require a short term rehab stay at a SNF, and he is agreeable to this plan. Fritz accepted a bed offer at [facility]. He will transport there via facility w/c van when medically ready. He will follow up with his PC, urology and discharge plan of care. CM will continue to follow.?
[2023-01-25 11:28] LABS: HCT 38.2 % (40.0-50.0); HGB 13.1 g/dL (13.5-17.5); RBC 4.47 10^6/uL (4.36-5.78); WBC 14.57 10^3/uL (4.4-10.8)
[2023-01-25 11:29] LABS: Abs Immature Grans 0.13 10^3/uL (0.0-0.06); Absolute Basophil Count 0.01 10^3/uL (0.0-0.2); Absolute Eosinophil Count 0.11 10^3/uL (0.0-0.7); Absolute Lymphocyte Count 0.64 10^3/uL (1.2-3.4); Absolute Monocyte Count 0.71 10^3/uL (0.1-0.8); Absolute Neutrophil Count 12.97 10^3/uL (1.2-6.7); Basophils % 0.1; Eosinophils % 0.8; Immature Grans % 0.9; Lymphocytes % 4.4; MCH 29.3 pg (27.0-33.0); MCHC 34.3 % (32.0-36.0); MCV 86 fL (80-95); MPV 10.1 fL (8.0-11.0); Monocytes % 4.9; Neutrophils % 88.9; Platelet Count 205 10^3/uL (130-400); RDW 13.8 % (11.8-14.1); RDW-SD 42.5 fL
--- NOTE | 2023-01-25 11:50 | PT.INNT ---
Date of service: 01/25/23 Time of Service: 11:46 PT Notes Visit Reasons: FTT,leukocytosis Patient refused therapy due to pain in back. This afternoon, ensure patient is premedicated prior to beginning therapy.
--- NOTE | 2023-01-25 13:29 | PGE_ITS ---
Date of Service Date of service: 01/25/23 Time of Service: 13:29 Assessment and Plan Assessment and plan (1) Bladder mass: Status: Acute Assessment and plan: Dr. Jimenez saw him in consult on 01/23 at that time he was not sure whether or not to proceed w/ cystoscopy. I have reached out to Dr. Jimenez and left him message so we can discuss workup and urologic and oncologic referral. 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 continue w/ P.T., nutritional consult and protein shakes. SALES BRANCH MANAGER consult to evaluate his swallowing given his prior hx of laryngeal CA (3) Fall: Status: Acute Assessment and plan: P.T.treatment as above (4) Adult failure to thrive: Status: Acute (5) Discharge planning issues: Status: Acute Assessment and plan: Noted: international sourcing manager found that he has Medicare. He is agreeable to SNF placement. Referrals sent. Subjective Subjective Interval history since last seen: Fritz seems to have known about his bladder mass for sometime, he is vague about the exact date (varying between 3 to 6 months but up to 3 years). He confirmed that he does want a workup and urologic and oncologic referral. However, he does not want CPR and does not want to be intubated and put on mechanical ventila tion. As such, I am changing his CODE STATUS to DNR/DNI. I have tried to reach out to Dr. Jimenez in the specialty clinic and got their answer machine. I have asked for him to call me back. The patient is interested in having cystoscopy and making a tissue diagnosis. I think rizwana this is reasonable and can be done here. However, he understands that he would need to go to a tertiary care center such as [facility] or to [facility] for definitive treatment, i.e. ureteral stenting and debulking surgery and he also understands that he already has lung and liver mets and that chemotherapy would only be palliative, not curative Exam Narrative Exam Narrative: Fritz is alert and oriented, he seems distant, does not make much eye contact but is completely oriented, and asks appropriate questions and gives appropriate answers even if he is vague on his hx of his bladder mass He is concerned about making the trip to [facility] and indicated he would have problems w/ getting down there and back. He lives w/ his cousin who works and is not home all the time Abdomen: soft, mild suprapubic tenderness, no guarding or rebound tenderness, normal bowel sounds (he states he has not had a BM) Extremities: no edema Objective Last Vital Signs Temp 36.5 C 01/25/23 07:05 Pulse 79 01/25/23 07:05 Resp 18 01/25/23 07:05 BP 134/82 01/25/23 07:05 Pulse Ox 95 01/25/23 07:05 Laboratory Results - last 24 hr 01/25/23 01/25/23 06:15 06:15 WBC 14.57 H RBC 4.47 Hgb 13.1 L Hct 38.2 L MCV 86 MCH 29.3 MCHC 34.3 RDW 13.8 Plt Count 205 MPV 10.1 Immature Gran % 0.9 Neutrophils % 88.9 Lymphocytes % 4.4 Monocytes % 4.9 Eosinophils % 0.8 Basophils % 0.1 Nucleated RBC % 0.0 Absolute Neutrophils 12.97 H Absolute Lymphocytes 0.64 L Absolute Monocytes 0.71 Absolute Eosinophils 0.11 Absolute Basophils 0.01 Sodium 137 Potassium 3.7 Chloride 105 Carbon Dioxide 24.6 Anion Gap 7.4 BUN 23 H Creatinine 0.7 Est GFR (CKD-EPI 2020) 102.89 Glucose 110 H Calcium 9.4 PAWSS Have you Been Recently Intoxicated or Drunk Within the Last 30 days?: Yes Have you Ever Experienced Previous Episodes of Alcohol Withdrawal?: No Have you ever Experienced Withdrawal Seizures?: No Have you ever Experienced Delirium Tremens(DT)s?: No Have you ever undergone Alcohol Rehabilitation Treatment (i.e, inpt ot outpatient treatment programs)?: No Have you ever Experienced Blackouts?: No Have you ever Combined Alcohol with other Downers within the last 90 days?: No Have you ever Combined Alcohol with any other Substance of Abuse during the last 90 days?: No Positive Blood Alcohol level on Presentation? [PCS.BAL]: No Evidence of Increased Autonomic Activity (i.e. HR>120, tremor, sweating, agitation, nausea)?: No Result: 1 Time Spent with Patient Time Spent with Patient: 35-49 minutes Time was spent: preparing to see the patient(eg.review tests), obtaining and/or reviewing separately otained hiistory, ordering medications,tests, procedures, referring, communicating with other health day care center director, indepentently interpreting results, counseling the patient and care coordination
--- NOTE | 2023-01-25 14:16 | W.PM.PROGNOT ---
Date of Service Date of service: 01/25/23 Time of Service: 14:16 Assessment and Plan Assessment and plan (1) Bladder mass: Status: Acute Assessment and plan: I spoke with our hospitalist and anesthesia colleagues and we are all in agreement that moving forward with a cystoscopy and transurethral biopsy of his bladder mass to get a tissue diagnosis would benefit the patient. A more prolonged transurethral resection of all visible tumor will not be attempted at this time. We will go ahead and schedule his procedure for tomorrow. I wrote his preop orders. Subjective Subjective Interval history since last seen: The patient has had a chance to meet with our palliative care team and has expressed his wishes that he would like to go ahead with a bladder mass biopsy here at [facility]. He has no current chest pain or shortness of breath at rest. He continues to have incontinence. Exam Narrative Exam Narrative: He is awake and alert. He seems to understand our discussion quite well and is quite clear in his wishes. He appears chronically ill but does not appear septic or toxic Objective Last Vital Signs Temp 36.5 C 01/25/23 07:05 Pulse 79 01/25/23 07:05 Resp 18 01/25/23 07:05 BP 134/82 01/25/23 07:05 Pulse Ox 95 01/25/23 07:05 Laboratory Results - last 24 hr 01/25/23 01/25/23 06:15 06:15 WBC 14.57 H RBC 4.47 Hgb 13.1 L Hct 38.2 L MCV 86 MCH 29.3 MCHC 34.3 RDW 13.8 Plt Count 205 MPV 10.1 Immature Gran % 0.9 Neutrophils % 88.9 Lymphocytes % 4.4 Monocytes % 4.9 Eosinophils % 0.8 Basophils % 0.1 Nucleated RBC % 0.0 Absolute Neutrophils 12.97 H Absolute Lymphocytes 0.64 L Absolute Monocytes 0.71 Absolute Eosinophils 0.11 Absolute Basophils 0.01 Sodium 137 Potassium 3.7 Chloride 105 Carbon Dioxide 24.6 Anion Gap 7.4 BUN 23 H Creatinine 0.7 Est GFR (CKD-EPI 2020) 102.89 Glucose 110 H Calcium 9.4 PAWSS Have you Been Recently Intoxicated or Drunk Within the Last 30 days?: Yes Have you Ever Experienced Previous Episodes of Alcohol Withdrawal?: No Have you ever Experienced Withdrawal Seizures?: No Have you ever Experienced Delirium Tremens(DT)s?: No Have you ever undergone Alcohol Rehabilitation Treatment (i.e, inpt ot outpatient treatment programs)?: No Have you ever Experienced Blackouts?: No Have you ever Combined Alcohol with other Downers within the last 90 days?: No Have you ever Combined Alcohol with any other Substance of Abuse during the last 90 days?: No Positive Blood Alcohol level on Presentation? [PCS.BAL]: No Evidence of Increased Autonomic Activity (i.e. HR>120, tremor, sweating, agitation, nausea)?: No Result: 1 Time Spent with Patient Time Spent with Patient: 25-34 minutes Time was spent: counseling the patient and care coordination
[2023-01-25] MEDS: Polyethylene Glycol 3350 17 GM PACKET PO (14:17)
--- NOTE | 2023-01-25 15:00 | PTTR_ITS ---
Date of service: 01/25/23 Time of Service: 15:00 PT Notes Visit Reasons: FTT,leukocytosis Inpatient Physical Therapy Treatment Note [facility] Date: 01/25/23 PRECAUTIONS: Fall, standard, activity as tolerated SUBJECTIVE: Patient prefers not to participate, agrees after minimal encouragement. OBJECTIVE: Supine in bed.? PAIN: Yes, reports everything hurts, mostly his back. VITALS: monitored by nursing staff ? ? BED MOBILITY/TRANSFERS? Rolling L/R: independent Supine-sit: independent ? Sit-supine: independent ? Sit-stand: SBA? Stand-sit: SBA ? Bed-Chair: SBA? Chair-bed: SBA Provided skilled cues and instruction on performance and technique throughout. ? Therapeutic Exercises ([id number]): Direct one-on-one instruction in therapeutic exercises to develop strength, endurance, range of motion and flexibility. ? Exercises: Seated EOB * LAQ x10 * marches x10 * ankle pumps x10 ?Ambulation ? Assistive Device: FWW ? Weight bearing: full Assist: SBA ? Distance:? 20 feet ? Deviation: stooped posture, reduced step length, reduced gray. ? Provided skilled instruction in proper exercise performance Provided skilled manual cues to facilitate proper muscle recruitment and/or form. ASSESSMENT:? Patient declines to participate further in therapy today, cites fatigue, increasing pain. PLAN: Continue global strengthening per plan of care within patient tolerance. TREATMENT CODE/TIME: 10 minutes beginning at 1500
[2023-01-25 15:25] VITALS: BP 108/69; PULSE 89; RESP 17; TEMP 36.4; O2SAT 96
[2023-01-25] MEDS: Docusate Sodium 100 MG/10 ML CUP PO (20:00)
[2023-01-25] MEDS: Senna TAB 1 TAB PO (21:33)
[2023-01-25] MEDS: LORazepam 0.5 MG TAB PO (21:33)
[2023-01-25] MEDS: traMADol 50 MG TAB PO (21:33)
[2023-01-25] MEDS: Protein Nutritional Supplement 16 GM 1 OUNCE PACKET PO (21:55)
[2023-01-26] VITALS (19 sets, daily range): BP systolic 109–195; BP diastolic 64–123; PULSE 83–116; RESP 14–29; TEMP 35.9–36.9; O2SAT 95–100; BMI 19.9
[2023-01-26] MEDS: Lactated Ringers 1,000 ML 80 ML IV
[2023-01-26] MEDS: MORPHine 2 MG/ML SYR IV ×2 (01:48→10:10)
--- NOTE | 2023-01-26 06:15 | NUR.NOTE ---
Pt has been npo since ar for a cysto/biopsy today. c/o severe back pain when repositioning.new order obtained for morphine 2 mgiv [id number]. Given x1 with good effect. Pt has been accepted at [facility] when medically cleared.
--- NOTE | 2023-01-26 11:39 | W.ANESPRE ---
General Info Date of Service Date Performed: 01/26/23 Height: 5 ft 10 in Weight: 63.1 kg Body Mass Index (BMI): 19.9 Surgical Procedure: Operation Date: 01/26/23 12:40 Proposed Procedure Side Surgeon p Cysto/Transurethral Resection Bladder Tumor Santos Jimenez MD Meds Allergies and Home Medications Allergies Allergy/AdvReac Type Severity Reaction Status Date / Time NSAIDS (Non-Steroidal Allergy Unknown Verified 01/22/23 11:48 Anti-Inflamma Home Medication Medication Instructions Recorded levofloxacin 750 mg tablet 750 mg PO DAILY #6 tabs 01/20/23 bisacodyl 10 mg rectal suppository 10 mg SD DAILY PRN PRN Constipation 01/23/23 docusate sodium 100 mg capsule 100 mg PO BID PRN PRN Constipation 01/23/23 polyethylene glycol 3350 17 gram 17 g PO DAILY constipation 01/23/23 oral powder packet (Miralax) Current Visit Medications: Current Medications Generic Name Dose Route Start Last Admin Trade Name Freq PRN Reason Stop Dose Admin Acetaminophen 0 mg 01/22/23 14:43 01/23/23 23:36 Acetaminophen 325 Mg Tab PO 650 mg Q4H PRN PRN Administration Al Hydrox/Mg Hydrox/Simethicone 30 ml 01/22/23 14:43 Mylanta Suspension 30 Ml Cup PO Q2H PRN PRN Bisacodyl 10 mg 01/23/23 11:19 Bisacodyl 10 Mg Supp SD DAILY PRN PRN Constipation Diphenoxylate HCl/Atropine 1 tab 01/22/23 14:44 Diphenoxylate/Atropine Tab PO QLOOSE PRN Docusate Sodium 100 mg 01/25/23 20:00 01/26/23 09:41 Docusate Sodium 100 Mg/10 Ml Cup PO Not Given BID SALLY Dronabinol 5 mg 01/23/23 07:00 01/26/23 05:45 Dronabinol 2.5 Mg Cap PO Not Given BID@0700,1600 SALLY Sodium Chloride 1,000 mls @ 80 mls/hr 01/22/23 14:45 01/25/23 17:26 Saline 1000ml Bag IV Infused INFUSION SALLY Infusion Ringer's Solution 1,000 mls @ 80 mls/hr 01/26/23 00:00 01/26/23 00:00 IV 01/26/23 12:29 80 mls/hr INFUSION SALLY Administration Cefazolin Sodium/Dextrose 2 gm in 50 mls @ 100 mls/hr 01/25/23 14:15 Ancef Duplex IVPB 01/26/23 12:00 PREOP SALLY Lorazepam 0.5 mg 01/22/23 23:26 01/25/23 21:33 Lorazepam 0.5 Mg Tab PO 0.5 mg Q6H PRN PRN Administration Morphine Sulfate 2 mg 01/26/23 02:15 01/26/23 10:10 Morphine 2 Mg/Ml Syr IV 2 mg Q1H PRN PRN Administration Pain Multi-Ingredient Supplement 1 ounce 01/25/23 20:00 01/26/23 09:00 Protein Nutritional Supplement 16 Gm 1 Ounce Packet PO Not Given BID SALLY Polyethylene Glycol 17 gm 01/25/23 14:00 01/26/23 09:00 Polyethylene Glycol 3350 17 Gm Packet PO Not Given DAILY SALLY Sennosides 1 tab 01/25/23 22:00 01/25/23 21:33 Senna Tab PO 1 tab HS SALLY Administration Tramadol HCl 50 mg 01/25/23 13:48 01/25/23 21:33 Tramadol 50 Mg Tab PO 50 mg Q4H PRN PRN Administration PFSH Active Problems Active Problems: Problem Status Onset Code Discharge planning issues Z02.9 Abnormal weight loss R63.4 Schizoaffective disorder F25.9 Advanced care planning/counseling discussion Z71.89 Palliative care encounter Z51.5 General weakness R53.1 Urinary tract infection N39.0 Fall W19.XXXA Blunt head trauma S09.8XXA Adult failure to thrive R62.7 Hyperlipidemia E78.5 Hypertension I10 Bladder mass N32.89 Tobacco Smoking/Tobacco Use Status: Current every day Tobacco Type: cigarettes Alcohol Alcohol Intake: current Alcohol intake frequency: 3 or more drinks per day Alcohol type: beer Substance Use Substance use: Occasionally Substance use type: marijuana Vital Signs and Lab Results Vital Signs Most Recent Vital Signs in EMR: Most Recent Vital Signs Temp Pulse Resp BP Pulse Ox 36.9 C 83 16 118/69 96 01/26/23 07:25 01/26/23 07:25 01/26/23 07:25 01/26/23 07:25 01/26/23 07:25 Lab Results 01/25/23 06:15 01/25/23 06:15 Blood Type / Crossmatch: No Data to Display Complete Blood Count: White Blood Count 14.57 10^3/uL (4.4-10.8) H 01/25/23 06:15 Red Blood Count 4.47 10^6/uL (4.36-5.78) 01/25/23 06:15 Hemoglobin 13.1 g/dL (13.5-17.5) L 01/25/23 06:15 Hematocrit 38.2 % (40.0-50.0) L 01/25/23 06:15 Platelet Count 205 10^3/uL (130-400) 01/25/23 06:15 Complete Metabolic Panel: Sodium 137 mmol/L (136-145) 01/25/23 06:15 Potassium 3.7 mmol/L (3.5-5.1) 01/25/23 06:15 Chloride 105 mmol/L (98-107) 01/25/23 06:15 Carbon Dioxide 24.6 mmol/L (21.0-32.0) 01/25/23 06:15 BUN 23 mg/dL (7-18) H 01/25/23 06:15 Creatinine 0.7 mg/dL (0.70-1.30) 01/25/23 06:15 Est GFR (CKD-EPI 2020) 102.89 (mL/min/1.73m2) 01/25/23 06:15 Magnesium 2.1 mg/dL (1.8-2.4) 01/22/23 12:17 Calcium 9.4 mg/dL (8.5-10.1) 01/25/23 06:15 Albumin 2.9 g/dL (3.4-5.0) L 01/22/23 12:17 Glucose 110 mg/dL (74-106) H 01/25/23 06:15 Liver Function Panel: Alanine Aminotransferase (ALT/SGPT) 12 U/L (16-63) L 01/22/23 12:17 Aspartate Amino Transf (AST/SGOT) 15 U/L (15-37) 01/22/23 12:17 Coagulation Panel: INR International Normalized Ratio 1.0 (0.9-1.1) 01/20/23 13:40 Prothrombin Time 10.0 sec (9.3-11.0) 01/20/23 13:40 Activated Partial Thromboplast Time 29.3 sec (21.5-31.9) 01/20/23 13:40 Cardiac Panel: Troponin I < 50 ng/L (<or=60) 01/20/23 Creatine Kinase 18 U/L (39-308) L 01/20/23 Arterial Blood Gas: No Data to Display Venous Blood Gas: No Data to Display Pancreas Panel: Lipase 22 U/L (16-77) 01/20/23 13:40 Thyroid Panel: Thyroid Stimulating Hormone (TSH) 4.20 uIU/mL (0.36-3.74) H 01/22/23 12:17 Infectious Disease: Coronavirus (COVID-19)(PCR) Negative (Negative) 01/20/23 13:40 Coronavirus 2019 Source Nasal/Nares 01/20/23 13:40 Blood Cultures: No Data to Display Toxicology Panel: No Data to Display Imaging and Studies Imaging and Studies Study information below may be from another EMR and interpreted by another provider. Please see original notes in EMR for more complete details. EKG Summary: Conclusion Sinus tachycardia...rate> 99 Left anterior fascicular block...axis(240,-40), init forces inf ST elevation, consider inferior injury...ST >0.08mV, II III aVF no stemi 01/20/23 Anesthesia Assessment and Plan Anesthesia History Personal History: No History of Anesthesia Complications Family History: No Family History of Anesthesia Complications Exercise Tolerance Exercise Tolerance: Metabolic Equivalents<4 Pertinent Negatives Pertinent Negatives: No Symptoms of GERD, No Major Cardiovascular Symptoms or Complaints, No Major Pulmonary Symptoms or Complaints and No History of CVA/TIA Cardiac & Pulmonary Exam Cardiac Exam: Normal S1/S2 Heart Sounds Pulmonary Exam: Clear Bilateral Breath Sounds and Rhonchi Present (clear with cough) Implantable Cardiac Device Does patient have a Pacemaker or an ICD?: No Airway Exam Known Difficult Airway: No Mallampati Class: 2 Mouth Opening: Normal (> 3cm) Thyromental Distance: Greater than 3 cm Neck Range of Motion: Full ROM Neck Circumference: Normal Teeth Condition: Edentulous ASA Classification ASA Score: ASA 4 Emergency Case?: No NPO Status NPO Status: NPO Clears >2 hours, Solids >8 hours Anesthesia Plan Resuscitation Status: DNR Fully Suspended During Perioperative Period Anesthesia Technique: General Anesthesia Airway Planned: Natural Airway Monitors Used: Standard Monitors Preoperative Comments:: Bx of bladder mass planned, any resection or stenting to be done at tertiary care center, lung nodules, probable liver mets.
--- NOTE | 2023-01-26 13:26 | BLADDER_PTH ---
PATIENT: Fritz Foster LOC: U#:[id number] AGE/SX: 62/M ROOM: RE01/22/[address]: Camden Vela MD : 1960 BED: A DIS: 01/30/2023 SPEC #: [id number] RECD: 01/26/23 16:22 STATUS: SUSIE REQ #: [id number] FERNANDO: 01/26/23 13:[address]: Camden Vela DEPT: Surgical Specimen RECD BY: Aneta Bertrand ENTERED: 01/26/23 16:24 SP TYPE: Bladder OTHR DR: Serene Ratliff,Abbey Matamoros, Marco Antonio Padron, DATA INTEGRATION ARCHITECT Kayleigh,Yu Jiménez, MD Jackson Pardo,Giuliana Lopez,Rosina Tariq, DATA INTEGRATION ARCHITECT Gold Sandoval Tissues: 1 - BLADDER BIOPSY Procedures: GROSS AND MICRO LEVEL 4 Comments: [id number]
--- NOTE | 2023-01-26 13:39 | ROE_ITS ---
Date of service: 01/26/23 Time of Service: 13:40 Operative Note Operative Note DATE OF PROCEDURE: 01/26/23 PRE-OP DIAGNOSIS: Bladder mass POST-OP DIAGNOSIS: same Urethral stricture PROCEDURE: cystoscopy, urethral dilation, Transurethral resection/biopsy of bladder tumor SURGEON: Santos Jimenez ANESTHESIA TYPE: Local By Surgeon and General:No Airway Refer to Anesthesia Record ESTIMATED BLOOD LOSS: 100 PATHOLOGY: other (bladder tumor) COMPLICATIONS: None Patient was transported to: PACU Patient's condition: stable Implants: 24 [place] Coude tipped irrigating catheter with 30 cc sterile water in balloon Indications: This is a 62-year-old gentleman who had previously been identified as having a large mass within his bladder, pelvic adenopathy, likely liver and lung metastasis on imaging studies. He has right hydronephrosis. 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 He is agreeable to a transurethral resection biopsy of the bladder mass to make a tissue diagnosis. We are not intending on attempting a complete resection of all visible tumor. Findings: urethral stricture at penoscrotal junction dilated to 24 [place] Blood products, necrotic tumor, papillary and nodular mass filling bladder lumen Procedure Description: The patient is brought to the operating room on 01/26/2023. He was given preoperative IV antibiotics. After successful induction of general anesthesia without intubation, his genitalia was prepped and draped. 2% Xylocaine jelly was instilled into the urethra to act as a local anesthetic. We passed the 22 [place] rigid cystoscope through the urethra and we encountered a very narrow urethral stricture at the penoscrotal junction. I was able to pass a guidewire through the strictured area and dilate up to size 24 [place] over the wire. The cystoscope was then reintroduced and we were then able to pass the scope through the urethra into the bladder. In the bladder, we found a large amount of blood product that was evacuated using a Graciela syringe. There were areas of necrotic tissue detached from any of the mucosa that were also irrigated free. Once the blood product the necrotic tumor was removed, we were able to visualize both papillary and nodular tissue occupying the majority of the lumen of the bladder. No specific landmarks such as ureteral orifice ease could be identified. I removed the cystoscope and passed the 24 [place] resectoscope sheath through the urethra into the bladder. I performed transurethral resection biopsies of some of the visible tumor that appeared viable. The resected tissue was evacuated and sent to pathology for permanent section. The bladder was then filled with irrigant, the resectoscope was removed. A 24 [place] hematuria catheter was passed through the urethra into the bladder. The catheter balloon was inflated with 30 cc of sterile water. Continuous bladder irrigation with saline was begun. The catheter was hand irrigated until all clots were removed and the irrigant appeared transparent. The patient tolerated this procedure well with no complications.
[2023-01-26] MEDS: Lidocaine 2% Jelly 6 ML SYR ×3 (13:48→16:29)
--- NOTE | 2023-01-26 14:08 | W.ANESPOSTOP ---
Postoperative Evaluation Date, Time and Location Date Performed: 01/26/23 Time Performed: 14:09 Patient Location: PACU Vital Signs Most Recent Imported Vital Signs: Most Recent Vital Signs Temp Pulse Resp BP Pulse Ox 36.2 C L 88 21 184/90 H 98 01/26/23 13:44 01/26/23 13:44 01/26/23 13:44 01/26/23 13:44 01/26/23 13:44 Pain Score Most Recent Pain Score: Most Recent Pain Score Pain Level [Back] 3 01/25/23 08:00 Pain Level 0 01/26/23 11:10 Assessment Mental Status: Awake (Alert & Oriented to Patient Baseline) Airway and Respiratory Function: Patent airway with normal (patient baseline) respiratory exam Cardiovascular Function: Hemodynamically Stable Hydration Status: Adequately Hydrated Nausea & Vomiting: No Nausea or Vomiting Pain: Pain is Moderate or Severe Postoperative Pain Management: Ongoing pain, patient will be managed as an inpatient Peripheral Nerve Block: Patient did not receive a nerve block
[2023-01-26] MEDS: Hyoscyamine 0.125 MG SL/ORAL/CHEW SL (14:25)
[2023-01-26] MEDS: MORPHine 10 MG/ML VIAL IVP ×2 (14:48→15:02)
[2023-01-26] MEDS: LORazepam 2 MG/ML VIAL 0.5 MG IVP (15:43)
--- NOTE | 2023-01-26 15:44 | W.PM.PROGNOT ---
Date of Service Date of service: 01/26/23 Time of Service: 15:44 Assessment and Plan Assessment and plan (1) Bladder mass: Status: Acute Assessment and plan: We will take the patient back to the OR to pass a cystoscope and insert a catheter over a wire. Subjective Subjective Interval history since last seen: While in the recovery room, the patient developed suprapubic discomfort. Exam Narrative Exam Narrative: I was unable to hand irrigate his catheter with a shilpa syringe. I was unable to pass a urethral catheter back into the bladder Objective Last Vital Signs Temp 36 C L 01/26/23 15:25 Pulse 104 H 01/26/23 15:25 Resp 29 H 01/26/23 15:25 BP 125/80 01/26/23 15:25 Pulse Ox 97 01/26/23 15:25 Laboratory Results - last 24 hr 01/23/23 14:25 Stool Campylobacter PCR Unresolved Stool Salmonella PCR Unresolved Stool Shigella PCR Unresolved Shiga Toxin (PCR) Unresolved PAWSS Have you Been Recently Intoxicated or Drunk Within the Last 30 days?: Yes Have you Ever Experienced Previous Episodes of Alcohol Withdrawal?: No Have you ever Experienced Withdrawal Seizures?: No Have you ever Experienced Delirium Tremens(DT)s?: No Have you ever undergone Alcohol Rehabilitation Treatment (i.e, inpt ot outpatient treatment programs)?: No Have you ever Experienced Blackouts?: No Have you ever Combined Alcohol with other Downers within the last 90 days?: No Have you ever Combined Alcohol with any other Substance of Abuse during the last 90 days?: No Positive Blood Alcohol level on Presentation? [PCS.BAL]: No Evidence of Increased Autonomic Activity (i.e. HR>120, tremor, sweating, agitation, nausea)?: No Result: 1 Time Spent with Patient Time Spent with Patient: <25 minutes Time was spent: other
--- NOTE | 2023-01-26 16:00 | W.PM.PROGNOT ---
Date of Service Date of service: 01/26/23 Time of Service: 16:00 Assessment and Plan Assessment and plan (1) Bladder mass: Status: Acute Assessment and plan: Dr. Jimenez performed cystoscopy today. There was a urethral stricture that needed to be dilated and upon entry to the bladder there was blood and necrosis requiring continuous bladder irrigation. He will be staying overnight with irrigation and see Dr. Jimenez in the a.m. Cytology sent for pathology. 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 continue w/ P.T., nutritional consult and protein shakes. (3) Adult failure to thrive: Status: Acute Assessment and plan: He will need ongoing usp care to help with his nutrition and to regain function. (4) Discharge planning issues: Status: Acute Assessment and plan: retirement facility once medically stable. Subjective Subjective Interval history since last seen: Patient is resting comfortably in bed. He is calm and cooperative. Family is here from [place]. He offers no new complaints. He was headed down for cystoscopy. Exam Narrative Exam Narrative: He is lying quietly in bed and in no apparent distress. He allowed me to examine his heart and lungs. Lungs sounded clear heart sounded regular. Abdomen was overall soft and nontender. I could not palpate any new masses. Lower extremities no CCE. Objective Last Vital Signs Temp 36.1 C L 01/26/23 15:55 Pulse 98 H 01/26/23 15:55 Resp 14 01/26/23 15:55 BP 111/66 01/26/23 15:55 Pulse Ox 98 01/26/23 15:55 Laboratory Results - last 24 hr 01/23/23 14:25 Stool Campylobacter PCR Unresolved Stool Salmonella PCR Unresolved Stool Shigella PCR Unresolved Shiga Toxin (PCR) Unresolved PAWSS Have you Been Recently Intoxicated or Drunk Within the Last 30 days?: Yes Have you Ever Experienced Previous Episodes of Alcohol Withdrawal?: No Have you ever Experienced Withdrawal Seizures?: No Have you ever Experienced Delirium Tremens(DT)s?: No Have you ever undergone Alcohol Rehabilitation Treatment (i.e, inpt ot outpatient treatment programs)?: No Have you ever Experienced Blackouts?: No Have you ever Combined Alcohol with other Downers within the last 90 days?: No Have you ever Combined Alcohol with any other Substance of Abuse during the last 90 days?: No Positive Blood Alcohol level on Presentation? [PCS.BAL]: No Evidence of Increased Autonomic Activity (i.e. HR>120, tremor, sweating, agitation, nausea)?: No Result: 1 Time Spent with Patient Time Spent with Patient: 25-34 minutes Time was spent: preparing to see the patient(eg.review tests), obtaining and/or reviewing separately [facility] hiistory, ordering medications,tests, procedures, referring, communicating with other health manager medicare marketing and indepentently interpreting results
--- NOTE | 2023-01-26 16:26 | CMPROGNOTE_ITS ---
Date of service: 01/26/23 Time of Service: 16:26 Care Management Progress Note Progress Note Text Progress Note Text: S/O: Fritz was lying in bed when CM met with him. His brother and sister in law were visiting. Per report, Fritz was scheduled to go to the OR today around noon for a cystoscopy with biopsy. CM provided support with filling out Fritz's residential JOSE application, and provided the original to Fritz, copies to his brother (who is listed as fraud representative on the form), and submitted the application for him. Fritz has a bed offer at [facility], where he was scheduled to transfer to today after his procedure. After the Cystoscopy Dr. Jimenez stated that he will need continuous bladder irrigation overnight, and will need to remain at [facility] for monitoring. CM communicated with [facility] admissions, and planned a potential admission for Sunday. CM will continue to follow. A: Fritz is a 62 year old male admitted to [facility] on 01/22/23 for failure to thrive, leukocytosis. P: Fritz will go to a SNF for short term rehab post hospitalization. Fritz accepted a bed offer at [facility]. He will transport there via facility w/c van when medically ready. He will follow up with his PC, urology and discharge plan of care. CM will continue to follow.?
--- NOTE | 2023-01-26 16:42 | W.PM.OP ---
Date of service: 01/26/23 Time of Service: 16:42 Operative Note Operative Note DATE OF PROCEDURE: 01/26/23 PRE-OP DIAGNOSIS: Clot retention POST-OP DIAGNOSIS: same PROCEDURE: 20 [place] Coude tipped irrigating catheter with 30 cc sterile water in balloon Refer to Anesthesia Record ESTIMATED BLOOD LOSS: 100 PATHOLOGY: other (bladder tumor) Patient was transported to: PACU Patient's condition: stable Implants: 20 [place] Coude tipped irrigating catheter with 10 cc sterile water in balloon Indications: This is a 62-year-old gentleman who has a history of a large bladder mass. Earlier this afternoon he underwent cystoscopy and transurethral biopsy of the bladder mass. We identified a urethral stricture in route needed to dilate the stricture prior to entering his bladder. We left an irrigating catheter and random bladder irrigation. In the recovery room, his irrigation was not draining well and we were unable to hand irrigate the catheter. He returns to the operating room now for cystoscopy and catheter placement Findings: Necrotic debris in bladder Procedure Description: The patient was brought to the operating room on 01/26/2023. His genitalia was prepped. He was given general anesthesia without intubation and placed in the dorsal lithotomy position. 2% Xylocaine jelly was instilled into the urethra to act as a local anesthetic. A 22 Barb[place] rigid cystoscope was passed through the urethra into the bladder. Again, a large amount of necrotic debris was found within the bladder. A guidewire was passed through the lumen of the cystoscope and the cystoscope was removed. A 20 [place] hematuria catheter was passed over the wire. The catheter balloon was inflated with 10 cc of sterile water. The catheter was hand irrigated and necrotic debris was evacuated. Continuous bladder irrigation with saline was then begun. The catheter was hooked to gravity drainage.
--- NOTE | 2023-01-26 17:27 | W.ANESPOSTOP ---
Postoperative Evaluation Date, Time and Location Date Performed: 01/26/23 Time Performed: 16:48 Patient Location: PACU Vital Signs Most Recent Imported Vital Signs: Most Recent Vital Signs Temp Pulse Resp BP Pulse Ox 36.4 C L 108 H 26 H 161/81 H 100 01/26/23 16:58 01/26/23 16:58 01/26/23 16:58 01/26/23 16:58 01/26/23 16:58 Most Recent Vital Signs Temp Pulse Resp BP Pulse Ox 36.2 C L 88 21 184/90 H 98 01/26/23 13:44 01/26/23 13:44 01/26/23 13:44 01/26/23 13:44 01/26/23 13:44 Pain Score Most Recent Pain Score: Most Recent Pain Score Pain Level [Back] 3 01/25/23 08:00 Pain Level 4 01/26/23 16:58 Assessment Mental Status: Awake (Alert & Oriented to Patient Baseline) Airway and Respiratory Function: Patent airway with normal (patient baseline) respiratory exam Cardiovascular Function: Hemodynamically Stable Hydration Status: Adequately Hydrated Nausea & Vomiting: No Nausea or Vomiting Pain: Pt. Denies Any Pain Peripheral Nerve Block: Patient did not receive a nerve block Postoperative Comments:: Patient seen in PACU after takeback to OR. Patient reporting much more comfortable, VSS and appearing appropriate. Patient is appropriate to be taken to floor.
[2023-01-26] MEDS: Oxybutynin-CR 5 MG TABCR PO (19:04)
[2023-01-26] MEDS: Acetaminophen 325 MG TAB PO (21:04)
[2023-01-26] MEDS: LORazepam 0.5 MG TAB PO (21:04)
[2023-01-26] MEDS: Docusate Sodium 100 MG/10 ML CUP PO (21:04)
[2023-01-26] MEDS: Protein Nutritional Supplement 16 GM 1 OUNCE PACKET PO (21:05)
[2023-01-26] MEDS: Senna TAB 1 TAB PO (21:05)
[2023-01-26] MEDS: Normal Saline 1,000 ML 80 ML IV (22:11)
[2023-01-27 00:50] VITALS: BP 150/70; PULSE 108; RESP 26; TEMP 36.4; O2SAT 100
[2023-01-27] MEDS: traMADol 50 MG TAB PO (03:52)
[2023-01-27] MEDS: Dronabinol 2.5 MG CAP 5 MG PO ×2 (06:13→16:22)
[2023-01-27 06:38] LABS: Abs Immature Grans 0.17 10^3/uL (0.0-0.06); Absolute Basophil Count 0.04 10^3/uL (0.0-0.2); Absolute Eosinophil Count 0.06 10^3/uL (0.0-0.7); Absolute Lymphocyte Count 0.66 10^3/uL (1.2-3.4); Absolute Monocyte Count 0.78 10^3/uL (0.1-0.8); Basophils % 0.2; Eosinophils % 0.3; HCT 35.5 % (40.0-50.0); Immature Grans % 0.9; Lymphocytes % 3.4; MCH 28.9 pg (27.0-33.0); MCHC 33.8 % (32.0-36.0); MCV 86 fL (80-95); MPV 10.4 fL (8.0-11.0); Neutrophils % 91.2; Platelet Count 178 10^3/uL (130-400); RBC 4.15 10^6/uL (4.36-5.78); RDW 14.1 % (11.8-14.1); RDW-SD 43.9 fL
[2023-01-27 06:41] LABS: Absolute Neutrophil Count 17.78 10^3/uL (1.2-6.7)
[2023-01-27 06:50] LABS: Anion Gap 9.3 mmol/L (3-11); BUN 26 mg/dL (7-18); CO2 23.7 mmol/L (21.0-32.0); CREATININE 0.9 mg/dL (0.70-1.30); Calcium 9.6 mg/dL (8.5-10.1); Chloride 105 mmol/L (98-107); Estimated GFR 95.37 (mL/min/1.73m2); Glucose 111 mg/dL (74-106); Potassium 3.6 mmol/L (3.5-5.1); Sodium 138 mmol/L (136-145)
[2023-01-27 07:31] VITALS: BP 104/68; PULSE 112; RESP 18; TEMP 35.8; O2SAT 92
--- NOTE | 2023-01-27 07:44 | W.PM.PROGNOT ---
Date of Service Date of service: 01/27/23 Time of Service: 07:45 Assessment and Plan Assessment and plan (1) Bladder mass: Status: Acute Assessment and plan: With the transparent output from the bladder, we can probably safely try stopping his bladder irrigation. If the output becomes opaque, we should restart the bladder irrigation. With a urethral stricture that needed to be dilated, we generally recommend leaving a urethral catheter in place for up to a week. Given his locally aggressive bladder tumor, I believe just the presence of a catheter is contributing to his pelvic discomfort. If he tolerates bladder drainage without irrigation over the next 24 hours, I am tempted to remove his catheter tomorrow. Subjective Subjective Interval history since last seen: In the recovery room, the patient's catheter became occluded with necrotic tumor debris from the bladder rather than actual blood clots. We were able to successfully change the catheter under cystoscopic guidance. He continues to have pelvic discomfort but the catheter remains patent. He is tolerating p.o. Exam Narrative Exam Narrative: He appears stable but does not appear septic or toxic He is bladder drainage is transparent with CBI running He is awake and alert Objective Last Vital Signs Temp 35.8 C L 01/27/23 07:31 Pulse 112 H 01/27/23 07:31 Resp 18 01/27/23 07:31 BP 104/68 01/27/23 07:31 Pulse Ox 92 01/27/23 07:31 Laboratory Results - last 24 hr 01/23/23 01/27/23 01/27/23 14:25 05:44 05:44 WBC 19.50 H RBC 4.15 L Hgb 12.0 L Hct 35.5 L MCV 86 MCH 28.9 MCHC 33.8 RDW 14.1 Plt Count 178 MPV 10.4 Immature Gran % 0.9 Neutrophils % 91.2 Lymphocytes % 3.4 Monocytes % 4.0 Eosinophils % 0.3 Basophils % 0.2 Nucleated RBC % 0.0 Absolute Neutrophils 17.78 H Absolute Lymphocytes 0.66 L Absolute Monocytes 0.78 Absolute Eosinophils 0.06 Absolute Basophils 0.04 Sodium 138 Potassium 3.6 Chloride 105 Carbon Dioxide 23.7 Anion Gap 9.3 BUN 26 H Creatinine 0.9 Est GFR (CKD-EPI 2020) 95.37 Glucose 111 H Calcium 9.6 Stool Campylobacter PCR Unresolved Stool Salmonella PCR Unresolved Stool Shigella PCR Unresolved Shiga Toxin (PCR) Unresolved PAWSS Have you Been Recently Intoxicated or Drunk Within the Last 30 days?: Yes Have you Ever Experienced Previous Episodes of Alcohol Withdrawal?: No Have you ever Experienced Withdrawal Seizures?: No Have you ever Experienced Delirium Tremens(DT)s?: No Have you ever undergone Alcohol Rehabilitation Treatment (i.e, inpt ot outpatient treatment programs)?: No Have you ever Experienced Blackouts?: No Have you ever Combined Alcohol with other Downers within the last 90 days?: No Have you ever Combined Alcohol with any other Substance of Abuse during the last 90 days?: No Positive Blood Alcohol level on Presentation? [PCS.BAL]: No Evidence of Increased Autonomic Activity (i.e. HR>120, tremor, sweating, agitation, nausea)?: No Result: 1 Time Spent with Patient Time Spent with Patient: <25 minutes Time was spent: counseling the patient
[2023-01-27] MEDS: Docusate Sodium 100 MG/10 ML CUP PO ×2 (08:22→21:09)
[2023-01-27] MEDS: Polyethylene Glycol 3350 17 GM PACKET PO (08:22)
[2023-01-27] MEDS: cefTRIAXone 2 GM/50 ML BAG IVPB (08:22)
[2023-01-27 08:25] VITALS: BP 159/80; PULSE 90; RESP 18; TEMP 35.1; O2SAT 97
--- NOTE | 2023-01-27 11:15 | PT.INTREAT ---
PT Notes Visit Reasons: FTT,leukocytosis Inpatient Physical Therapy Treatment Note [facility] Date: 01/27/23 SUBJECTIVE: Pt refused PT 1x fist attempt then was willing to move up into the bed because he was sliding down on second attempt for PT. OBJECTIVE: ? Therapeutic Activities (29632v[1]): Direct one-on-one instruction in dynamic activities to improve functional performance. ? BED MOBILITY/TRANSFERS? Sliding up into bed transfer. ? ASSESSMENT:? Pt refused all other therapy today except moving up into the bed because he was sliding down. PLAN: Cont as per PT POC. TREATMENT CODE/TIME: 03-24:15 (8) waiting time for the rest of the time in room for assist.
[2023-01-27 13:31] LABS: Bilirubin Negative (Negative); Blood Large (Negative); Clarity Sl Cloudy (Clear); Glucose Negative (Negative); Ketones Negative (Negative); Leukocyte Esterase Negative (Negative); Nitrite Negative (Negative); Urobilinogen 0.2 mg/dL (Up to 0.2)
[2023-01-27 13:39] LABS: Bacteria Negative HPF (Negative); C & S Indicated? C&S Done As Ordered; Casts Negative LPF (Negative); Crystals Negative HPF (Negative); Epithelial Cells Negative HPF (Negative); Mucus Negative (Negative); RBC >50 HPF (0-2); WBC 0-2 HPF (0-5)
--- NOTE | 2023-01-27 14:48 | NUR.NOTE ---
Pt on CBI this morning. Per police officer booking, Dr. Jimenez clamped irrigation and stated pt should remain clamped as long as urine is clear/pink. Upon assessing the pt 30 min later, urine was herrera and clotting. police officer booking notified and recommended unclamping the line which was done. Per MD, leave CBI unclamped for now. No further interventions at this time. Nursing Note:
[2023-01-27 15:33] VITALS: BP 148/79; PULSE 96; RESP 18; TEMP 36.5; O2SAT 96
[2023-01-27] MEDS: Oxybutynin 5 MG TAB PO (16:57)
--- NOTE | 2023-01-27 17:09 | PGE_ITS ---
Date of Service Date of service: 01/27/23 Time of Service: 17:09 Assessment and Plan Assessment and plan (1) Bladder mass: Status: Acute Assessment and plan: S/p cystoscopy; postoperatively, w/ hematuria which is much much better and no longer on CBI. Defer to urology. (2) Hematuria: Status: Acute Assessment and plan: As above (3) Suprapubic pain: Status: Acute Assessment and plan: Continue oxybutynin; has morphine prn. (4) Ureteral stricture: Status: Acute Assessment and plan: There will be an attempt to remove a york catheter tomorrow if the bladder continues to drain well. (5) General weakness: Status: Acute Assessment and plan: Continue PT and nutritional shakes (6) Adult failure to thrive: Status: Acute Assessment and plan: As above Plan is for discharge to a SNF on Sunday (7) Discharge planning issues: Status: Acute Assessment and plan: DNR/DNI SNF on Sunday (8) DVT prophylaxis: Status: Acute Assessment and plan: SCDs. Avoid chemical DVT ppx in setting of hematuria Subjective Subjective Interval history since last seen: Mr Foster reports suprapubic pressure/discomfort. His CBI was stopped, and the bladder has been adequately draining since then. The paln is to try to remove his york catheter tomorrow, per Dr Jimenez. Denies dizziness, CP, SOB, nausea. Exam Narrative Exam Narrative: General: Cachectic middle-aged Caus[place] male who appears uncomfortable HEENT: EOMI, MMM Heart: RRR, no m/r/g Lungs: CTAB Abdomen: soft, nontender, nondistended Extremities: no edema BLEs Objective Last Vital Signs Temp 36.5 C 01/27/23 15:33 Pulse 96 H 01/27/23 15:33 Resp 18 01/27/23 15:33 BP 148/79 H 01/27/23 15:33 Pulse Ox 96 01/27/23 15:33 Laboratory Results - last 24 hr 01/27/23 01/27/23 01/27/23 05:44 05:44 08:30 WBC 19.50 H RBC 4.15 L Hgb 12.0 L Hct 35.5 L MCV 86 MCH 28.9 MCHC 33.8 RDW 14.1 Plt Count 178 MPV 10.4 Immature Gran % 0.9 Neutrophils % 91.2 Lymphocytes % 3.4 Monocytes % 4.0 Eosinophils % 0.3 Basophils % 0.2 Nucleated RBC % 0.0 Absolute Neutrophils 17.78 H Absolute Lymphocytes 0.66 L Absolute Monocytes 0.78 Absolute Eosinophils 0.06 Absolute Basophils 0.04 Sodium 138 Potassium 3.6 Chloride 105 Carbon Dioxide 23.7 Anion Gap 9.3 BUN 26 H Creatinine 0.9 Est GFR (CKD-EPI 2020) 95.37 Glucose 111 H Calcium 9.6 Urine Color [place] Urine Clarity Sl Cloudy Urine pH 5.0 Ur Specific [place] 1.010 Urine Protein Negative Urine Ketones Negative Urine Blood Large H Urine Nitrite Negative Urine Bilirubin Negative Urine Urobilinogen 0.2 Ur Leukocyte Esterase Negative Urine RBC >50 H Urine WBC 0-2 Ur Epithelial Cells Negative Urine Crystals Negative Urine Bacteria Negative Urine Casts Negative Urine Mucus Negative Ur Culture Indicated? C&S Done As Ordered Urine Glucose Negative PAWSS Have you Been Recently Intoxicated or Drunk Within the Last 30 days?: Yes Have you Ever Experienced Previous Episodes of Alcohol Withdrawal?: No Have you ever Experienced Withdrawal Seizures?: No Have you ever Experienced Delirium Tremens(DT)s?: No Have you ever undergone Alcohol Rehabilitation Treatment (i.e, inpt ot outpatient treatment programs)?: No Have you ever Experienced Blackouts?: No Have you ever Combined Alcohol with other Downers within the last 90 days?: No Have you ever Combined Alcohol with any other Substance of Abuse during the last 90 days?: No Positive Blood Alcohol level on Presentation? [PCS.BAL]: No Evidence of Increased Autonomic Activity (i.e. HR>120, tremor, sweating, agitation, nausea)?: No Result: 1 Time Spent with Patient Time Spent with Patient: 25-34 minutes Time was spent: preparing to see the patient(eg.review tests), obtaining and/or reviewing separately otained hiistory, ordering medications,tests, procedures, referring, communicating with other health palliative care nurse practitioner, indepentently interpreting results, counseling the patient and care coordination
[2023-01-27] MEDS: Normal Saline Flush 10 ML SYR (20:36)
[2023-01-27] MEDS: MORPHine 2 MG/ML SYR IV (20:36)
[2023-01-27] MEDS: Protein Nutritional Supplement 16 GM 1 OUNCE PACKET PO (21:08)
[2023-01-27] MEDS: Senna TAB 1 TAB PO (21:09)
[2023-01-28 00:34] VITALS: BP 103/66; PULSE 92; RESP 18; TEMP 36.2; O2SAT 94
[2023-01-28] MEDS: traMADol 50 MG TAB PO ×2 (03:00→22:22)
[2023-01-28 07:01] LABS: Abs Immature Grans 0.17 10^3/uL (0.0-0.06); Absolute Basophil Count 0.03 10^3/uL (0.0-0.2); Basophils % 0.2; Eosinophils % 0.6; HCT 34.4 % (40.0-50.0); HGB 11.6 g/dL (13.5-17.5); Lymphocytes % 4.5; MCH 28.9 pg (27.0-33.0); MCHC 33.7 % (32.0-36.0); MCV 86 fL (80-95); Monocytes % 4.7; Platelet Count 178 10^3/uL (130-400); RBC 4.02 10^6/uL (4.36-5.78); RDW 14.1 % (11.8-14.1); RDW-SD 43.8 fL; WBC 17.27 10^3/uL (4.4-10.8)
[2023-01-28 07:03] LABS: Absolute Lymphocyte Count 0.78 10^3/uL (1.2-3.4); Absolute Monocyte Count 0.81 10^3/uL (0.1-0.8); Absolute Neutrophil Count 15.37 10^3/uL (1.2-6.7)
[2023-01-28 07:19] VITALS: BP 142/87; PULSE 105; RESP 18; TEMP 36.2; O2SAT 98
[2023-01-28 07:31] LABS: Anion Gap 7.8 mmol/L (3-11); BUN 20 mg/dL (7-18); CO2 26.2 mmol/L (21.0-32.0); CREATININE 0.8 mg/dL (0.70-1.30); Calcium 10.4 mg/dL (8.5-10.1); Chloride 104 mmol/L (98-107); Estimated GFR 98.83 (mL/min/1.73m2); Glucose 109 mg/dL (74-106); Magnesium 1.5 mg/dL (1.8-2.4); Potassium 3.5 mmol/L (3.5-5.1); Sodium 138 mmol/L (136-145)
[2023-01-28] MEDS: Docusate Sodium 100 MG/10 ML CUP PO ×2 (08:30→20:52)
[2023-01-28] MEDS: Protein Nutritional Supplement 16 GM 1 OUNCE PACKET PO ×2 (08:30→20:50)
[2023-01-28] MEDS: Dronabinol 2.5 MG CAP 5 MG PO ×2 (08:30→16:27)
[2023-01-28] MEDS: Polyethylene Glycol 3350 17 GM PACKET PO (08:30)
[2023-01-28] MEDS: cefTRIAXone 2 GM/50 ML BAG IVPB (08:30)
--- NOTE | 2023-01-28 09:30 | PGE_ITS ---
Date of Service Date of service: 01/28/23 Time of Service: 09:30 Assessment and Plan Assessment and plan (1) Bladder mass: Status: Acute Assessment and plan: We will leave his CBI at a slow rate today and plan to D/C the CBI and the york catheter tomorrow morning. Subjective Subjective Interval history since last seen: We were unable to discontinue his CBI yesterday. He has remained comfortable with no clot retention. Exam Narrative Exam Narrative: He does not appear septic or toxic His catheter output is transparent with very slow CBI rate Objective Last Vital Signs Temp 36.2 C L 01/28/23 07:19 Pulse 105 H 01/28/23 07:19 Resp 18 01/28/23 07:19 BP 142/87 H 01/28/23 07:19 Pulse Ox 98 01/28/23 07:19 Laboratory Results - last 24 hr 01/27/23 01/28/23 01/28/23 08:30 06:11 06:11 WBC 17.27 H RBC 4.02 L Hgb 11.6 L Hct 34.4 L MCV 86 MCH 28.9 MCHC 33.7 RDW 14.1 Plt Count 178 MPV 10.0 Immature Gran % 1.0 Neutrophils % 89.0 Lymphocytes % 4.5 Monocytes % 4.7 Eosinophils % 0.6 Basophils % 0.2 Nucleated RBC % 0.0 Absolute Neutrophils 15.37 H Absolute Lymphocytes 0.78 L Absolute Monocytes 0.81 H Absolute Eosinophils 0.10 Absolute Basophils 0.03 Sodium 138 Potassium 3.5 Chloride 104 Carbon Dioxide 26.2 Anion Gap 7.8 BUN 20 H Creatinine 0.8 Est GFR (CKD-EPI 2020) 98.83 Glucose 109 H Calcium 10.4 H Magnesium 1.5 L Urine Color [place] Urine Clarity Sl Cloudy Urine pH 5.0 Ur Specific [place] 1.010 Urine Protein Negative Urine Ketones Negative Urine Blood Large H Urine Nitrite Negative Urine Bilirubin Negative Urine Urobilinogen 0.2 Ur Leukocyte Esterase Negative Urine RBC >50 H Urine WBC 0-2 Ur Epithelial Cells Negative Urine Crystals Negative Urine Bacteria Negative Urine Casts Negative Urine Mucus Negative Ur Culture Indicated? C&S Done As Ordered Urine Glucose Negative PAWSS Have you Been Recently Intoxicated or Drunk Within the Last 30 days?: Yes Have you Ever Experienced Previous Episodes of Alcohol Withdrawal?: No Have you ever Experienced Withdrawal Seizures?: No Have you ever Experienced Delirium Tremens(DT)s?: No Have you ever undergone Alcohol Rehabilitation Treatment (i.e, inpt ot outpatient treatment programs)?: No Have you ever Experienced Blackouts?: No Have you ever Combined Alcohol with other Downers within the last 90 days?: No Have you ever Combined Alcohol with any other Substance of Abuse during the last 90 days?: No Positive Blood Alcohol level on Presentation? [PCS.BAL]: No Evidence of Increased Autonomic Activity (i.e. HR>120, tremor, sweating, agitation, nausea)?: No Result: 1 Time Spent with Patient Time Spent with Patient: <25 minutes Time was spent: other
[2023-01-28] MEDS: Magnesium Gluconate 500 MG TAB PO (09:35)
[2023-01-28] MEDS: Potassium Chloride 10 MEQ CAPCR 20 MEQ PO (09:36)
[2023-01-28] MEDS: MAGNESIUM SULFATE 2 GM/50 ML BAG IVPB (09:36)
--- NOTE | 2023-01-28 11:12 | PT.INNT ---
PT Notes Visit Reasons: FTT,leukocytosis Pt refused PT x 2 attempts today.
[2023-01-28 15:18] VITALS: BP 127/71; PULSE 93; RESP 18; TEMP 36.3; O2SAT 96
--- NOTE | 2023-01-28 16:26 | PGE_ITS ---
Date of Service Date of service: 01/28/23 Time of Service: 16:26 Assessment and Plan Assessment and plan (1) Bladder mass: Status: Acute Assessment and plan: S/p cystoscopy with bladder mass biopsy on 01/26/[address] Jimenez, with subsequent hematuria which is much much better status post CBI. Dr. Jimenez to remove [place] tomorrow. (2) Hematuria: Status: Acute Assessment and plan: As above (3) Suprapubic pain: Status: Acute Assessment and plan: Continue oxybutynin; has morphine prn. We will add oral oxycodone to try to decrease requirement of prior narcotics. (4) Ureteral stricture: Status: Acute Assessment and plan: There will be an attempt to remove a york catheter tomorrow if the bladder continues to drain well. (5) General weakness: Status: Acute Assessment and plan: Continue PT and nutritional shakes (6) Adult failure to thrive: Status: Acute Assessment and plan: As above Plan is for discharge to a SNF early next week (7) Discharge planning issues: Status: Acute Assessment and plan: DNR/DNI SNF early next week (8) DVT prophylaxis: Status: Acute Assessment and plan: SCDs. Avoid chemical DVT ppx in setting of hematuria Subjective Subjective Interval history since last seen: Fritz complaining of constipation despite Miralax and docusate. he has trouble eliminating from bedpan. Nursing is going to try to get him up to bedside commode. His hematuria is clearing up w/ CBI today. Dr. Jimenez saw him earlier and plans to remove the york tomorrow and give him voiding trial. Bladder bx results are not back. Exam Narrative Exam Narrative: Fritz is lying in bed awaiting to be gotten up out of bed to use the bedside commode. He is alert and oriented to person place time circumstance Lungs are clear to auscultation Heart is regular rate and rhythm without murmur rub or gallop Abdomen is nondistended normal bowel sounds soft but with suprapubic tenderness. [place] catheter is draining clear yellow urine. Extremities without edema Objective Last Vital Signs Temp 36.3 C L 01/28/23 15:18 Pulse 93 H 01/28/23 15:18 Resp 18 01/28/23 15:18 BP 127/71 01/28/23 15:18 Pulse Ox 96 01/28/23 15:18 Laboratory Results - last 24 hr 01/28/23 01/28/23 06:11 06:11 WBC 17.27 H RBC 4.02 L Hgb 11.6 L Hct 34.4 L MCV 86 MCH 28.9 MCHC 33.7 RDW 14.1 Plt Count 178 MPV 10.0 Immature Gran % 1.0 Neutrophils % 89.0 Lymphocytes % 4.5 Monocytes % 4.7 Eosinophils % 0.6 Basophils % 0.2 Nucleated RBC % 0.0 Absolute Neutrophils 15.37 H Absolute Lymphocytes 0.78 L Absolute Monocytes 0.81 H Absolute Eosinophils 0.10 Absolute Basophils 0.03 Sodium 138 Potassium 3.5 Chloride 104 Carbon Dioxide 26.2 Anion Gap 7.8 BUN 20 H Creatinine 0.8 Est GFR (CKD-EPI 2020) 98.83 Glucose 109 H Calcium 10.4 H Magnesium 1.5 L PAWSS Have you Been Recently Intoxicated or Drunk Within the Last 30 days?: Yes Have you Ever Experienced Previous Episodes of Alcohol Withdrawal?: No Have you ever Experienced Withdrawal Seizures?: No Have you ever Experienced Delirium Tremens(DT)s?: No Have you ever undergone Alcohol Rehabilitation Treatment (i.e, inpt ot outpatient treatment programs)?: No Have you ever Experienced Blackouts?: No Have you ever Combined Alcohol with other Downers within the last 90 days?: No Have you ever Combined Alcohol with any other Substance of Abuse during the last 90 days?: No Positive Blood Alcohol level on Presentation? [PCS.BAL]: No Evidence of Increased Autonomic Activity (i.e. HR>120, tremor, sweating, agitation, nausea)?: No Result: 1 Time Spent with Patient Time Spent with Patient: 25-34 minutes Time was spent: preparing to see the patient(eg.review tests), ordering medications,tests, procedures, referring, communicating with other health manager intensive care, indepentently interpreting results, counseling the patient and care coordination
[2023-01-28] MEDS: Bisacodyl 10 MG SUPP PR (16:27)
[2023-01-28] MEDS: Senna TAB 1 TAB PO (20:52)
[2023-01-28] MEDS: MORPHine 2 MG/ML SYR IV (22:59)
[2023-01-29] VITALS: BP 108/65; PULSE 90; RESP 18; TEMP 36.4; O2SAT 94
[2023-01-29] MEDS: MORPHine 2 MG/ML SYR IV (02:33)
[2023-01-29] MEDS: LORazepam 0.5 MG TAB PO (02:34)
[2023-01-29] MEDS: Normal Saline Flush 10 ML SYR IVP (02:34)
[2023-01-29 07:12] LABS: Abs Immature Grans 0.14 10^3/uL (0.0-0.06); Absolute Lymphocyte Count 0.88 10^3/uL (1.2-3.4); Absolute Monocyte Count 0.77 10^3/uL (0.1-0.8); Basophils % 0.1; Eosinophils % 0.9; HCT 35.6 % (40.0-50.0); HGB 11.7 g/dL (13.5-17.5); Immature Grans % 0.9; Lymphocytes % 5.9; MCH 28.3 pg (27.0-33.0); MCHC 32.9 % (32.0-36.0); MCV 86 fL (80-95); MPV 9.9 fL (8.0-11.0); Monocytes % 5.2; Platelet Count 180 10^3/uL (130-400); RBC 4.13 10^6/uL (4.36-5.78); RDW 14.1 % (11.8-14.1); RDW-SD 44.4 fL; WBC 14.85 10^3/uL (4.4-10.8)
[2023-01-29 07:18] LABS: Absolute Basophil Count 0.01 10^3/uL (0.0-0.2); Absolute Eosinophil Count 0.13 10^3/uL (0.0-0.7); Absolute Neutrophil Count 12.92 10^3/uL (1.2-6.7)
[2023-01-29] MEDS: Dronabinol 2.5 MG CAP 5 MG PO ×2 (07:26→15:59)
[2023-01-29 07:29] LABS: Anion Gap 8.2 mmol/L (3-11); BUN 19 mg/dL (7-18); CO2 26.8 mmol/L (21.0-32.0); CREATININE 0.7 mg/dL (0.70-1.30); Calcium 10.4 mg/dL (8.5-10.1); Chloride 100 mmol/L (98-107); Estimated GFR 102.89 (mL/min/1.73m2); Glucose 118 mg/dL (74-106); Magnesium 1.8 mg/dL (1.8-2.4); Potassium 3.6 mmol/L (3.5-5.1); Sodium 135 mmol/L (136-145)
[2023-01-29] MEDS: cefTRIAXone 2 GM/50 ML BAG IVPB (08:57)
[2023-01-29] MEDS: Protein Nutritional Supplement 16 GM 1 OUNCE PACKET PO ×2 (08:57→21:23)
[2023-01-29] MEDS: Potassium Chloride 10 MEQ CAPCR 20 MEQ PO (08:57)
[2023-01-29] MEDS: Docusate Sodium 100 MG/10 ML CUP PO ×2 (08:57→13:57)
[2023-01-29] MEDS: Magnesium Gluconate 500 MG TAB PO (08:57)
[2023-01-29] MEDS: Polyethylene Glycol 3350 17 GM PACKET PO (08:57)
[2023-01-29 10:40] VITALS: BP 137/70; PULSE 83; RESP 18; TEMP 36.4; O2SAT 95
--- NOTE | 2023-01-29 12:14 | CMPROGNOTE_ITS ---
Date of service: 01/29/23 Time of Service: 12:14 Care Management Progress Note Progress Note Text Progress Note Text: S/O: Fritz was lying in bed when CM met with him. He stated that he is doing ok today, and that his york catheter was recently removed. Per report, he will have a voiding trial today. CM reviewed his discharge plan, which is for him to go to short term rehab at [facility] once he is medically cleared. Per MD, this may be as early as tomorrow. Fritz expressed understanding and agreement of this plan. CM will continue to follow. A: Fritz is a 62 year old male admitted to [facility] on 01/22/23 for failure to thrive, leukocytosis. P: Fritz will go to a SNF for short term rehab post hospitalization. Fritz accepted a bed offer at [facility]. He will transport there via facility w/c van when medically ready. He will follow up with his PC, urology and discharge plan of care. CM will continue to follow.
--- NOTE | 2023-01-29 14:09 | W.PM.PROGNOT ---
Date of Service Date of service: 01/29/23 Time of Service: 14:09 Assessment and Plan Assessment and plan (1) Bladder mass: Status: Acute Assessment and plan: I removed his catheter. If he is able to void, we should be able to be discharged tomorrow. Once his pathology is available, we can make the apppropriate outpatient referrals. Subjective Subjective Interval history since last seen: He continues to have abdominal discomfort. He tells me it feels like gas. Exam Narrative Exam Narrative: His vital signs are documented elsewhere His CBI is transparent. His catheter is irrigated without clots Objective Last Vital Signs Temp 36.4 C L 01/29/23 10:40 Pulse 83 01/29/23 10:40 Resp 18 01/29/23 10:40 BP 137/70 01/29/23 10:40 Pulse Ox 95 01/29/23 10:40 Laboratory Results - last 24 hr 01/27/23 01/29/23 01/29/23 12:10 07:00 07:00 WBC 14.85 H RBC 4.13 L Hgb 11.7 L Hct 35.6 L MCV 86 MCH 28.3 MCHC 32.9 RDW 14.1 Plt Count 180 MPV 9.9 Immature Gran % 0.9 Neutrophils % 87.0 Lymphocytes % 5.9 Monocytes % 5.2 Eosinophils % 0.9 Basophils % 0.1 Nucleated RBC % 0.0 Absolute Neutrophils 12.92 H Absolute Lymphocytes 0.88 L Absolute Monocytes 0.77 Absolute Eosinophils 0.13 Absolute Basophils 0.01 Sodium 135 L Potassium 3.6 Chloride 100 Carbon Dioxide 26.8 Anion Gap 8.2 BUN 19 H Creatinine 0.7 Est GFR (CKD-EPI 2020) 102.89 Glucose 118 H Calcium 10.4 H Magnesium 1.8 Cryptosporidium/Giardia SEE BELOW PAWSS Have you Been Recently Intoxicated or Drunk Within the Last 30 days?: Yes Have you Ever Experienced Previous Episodes of Alcohol Withdrawal?: No Have you ever Experienced Withdrawal Seizures?: No Have you ever Experienced Delirium Tremens(DT)s?: No Have you ever undergone Alcohol Rehabilitation Treatment (i.e, inpt ot outpatient treatment programs)?: No Have you ever Experienced Blackouts?: No Have you ever Combined Alcohol with other Downers within the last 90 days?: No Have you ever Combined Alcohol with any other Substance of Abuse during the last 90 days?: No Positive Blood Alcohol level on Presentation? [PCS.BAL]: No Evidence of Increased Autonomic Activity (i.e. HR>120, tremor, sweating, agitation, nausea)?: No Result: 1 Time Spent with Patient Time Spent with Patient: <25 minutes Time was spent: other
--- NOTE | 2023-01-29 16:16 | PT.INNT ---
PT Notes Visit Reasons: FTT,leukocytosis Attempted to treat patient today. He declined PT today reporting when he moves he leaks urine and stool. He also reports unable to make it to commode in time. He is open to SNF placement. Reports prior to admission he was having hard time getting up and around home. If bowel and bladder function were to be better controlled he would likely do better at participation.
--- NOTE | 2023-01-29 16:25 | W.PM.PROGNOT ---
Date of Service Date of service: 01/29/23 Time of Service: 16:26 Assessment and Plan Assessment and plan (1) Bladder mass: Status: Acute Assessment and plan: S/p cystoscopy with bladder mass biopsy on 01/26/[address] Jimenez, with subsequent hematuria which is much much better status post CBI.York removed today. plan for dc home tomorrow w/ follow up w/ Dr. Jimenez to review pathology report when available. (2) Discharge planning issues: Status: Acute Assessment and plan: DNR/DNI plan for dc [facility] tomorrow (3) DVT prophylaxis: Status: Acute Assessment and plan: SCDs. Avoid chemical DVT ppx in setting of hematuria Subjective Subjective Interval history since last seen: Patient had his york removed earlier today by Dr. Jimenez. Patient states that he has voided since the york was removed however, he complains of urinary incontinence. He is concerned that he will not be able to hold his urine when he goes home. Exam Narrative Exam Narrative: Abdomen nondistended, soft, scaphoid, nontender Objective Last Vital Signs Temp 36.4 C L 01/29/23 10:40 Pulse 83 01/29/23 10:40 Resp 18 01/29/23 10:40 BP 137/70 01/29/23 10:40 Pulse Ox 95 01/29/23 10:40 Laboratory Results - last 24 hr 01/27/23 01/29/23 01/29/23 12:10 07:00 07:00 WBC 14.85 H RBC 4.13 L Hgb 11.7 L Hct 35.6 L MCV 86 MCH 28.3 MCHC 32.9 RDW 14.1 Plt Count 180 MPV 9.9 Immature Gran % 0.9 Neutrophils % 87.0 Lymphocytes % 5.9 Monocytes % 5.2 Eosinophils % 0.9 Basophils % 0.1 Nucleated RBC % 0.0 Absolute Neutrophils 12.92 H Absolute Lymphocytes 0.88 L Absolute Monocytes 0.77 Absolute Eosinophils 0.13 Absolute Basophils 0.01 Sodium 135 L Potassium 3.6 Chloride 100 Carbon Dioxide 26.8 Anion Gap 8.2 BUN 19 H Creatinine 0.7 Est GFR (CKD-EPI 2020) 102.89 Glucose 118 H Calcium 10.4 H Magnesium 1.8 Stool Description Not Applicable Stool Ova & Parasites SEE BELOW Cryptosporidium/Giardia SEE BELOW PAWSS Have you Been Recently Intoxicated or Drunk Within the Last 30 days?: Yes Have you Ever Experienced Previous Episodes of Alcohol Withdrawal?: No Have you ever Experienced Withdrawal Seizures?: No Have you ever Experienced Delirium Tremens(DT)s?: No Have you ever undergone Alcohol Rehabilitation Treatment (i.e, inpt ot outpatient treatment programs)?: No Have you ever Experienced Blackouts?: No Have you ever Combined Alcohol with other Downers within the last 90 days?: No Have you ever Combined Alcohol with any other Substance of Abuse during the last 90 days?: No Positive Blood Alcohol level on Presentation? [PCS.BAL]: No Evidence of Increased Autonomic Activity (i.e. HR>120, tremor, sweating, agitation, nausea)?: No Result: 1 Time Spent with Patient Time Spent with Patient: <25 minutes Time was spent: care coordination
[2023-01-29 20:24] VITALS: BP 116/71; PULSE 99; RESP 18; TEMP 37.2; O2SAT 95
[2023-01-29 23:06] VITALS: BP 130/67; PULSE 101; RESP 18; TEMP 36.2; O2SAT 94
[2023-01-29] MEDS: traMADol 50 MG TAB PO (23:40)
[2023-01-30] MEDS: LORazepam 0.5 MG TAB PO (02:18)
[2023-01-30 07:01] VITALS: BP 109/66; PULSE 89; TEMP 36.8; O2SAT 93
--- NOTE | 2023-01-30 08:16 | W.PM.PROGNOT ---
Date of Service Date of service: 01/30/23 Time of Service: 08:17 Assessment and Plan Assessment and plan (1) Bladder mass: Status: Acute Assessment and plan: His pathology is still pending. Once it is available, we can make a referral for him to see the medical oncology team down at the [facility]. 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 Subjective Subjective Interval history since last seen: He continues to pass urine and stool. He has not gone into retention. He continues to have some abdominal discomfort, but the discomfort has not escalated since his catheter was removed. Exam Narrative Exam Narrative: He appears chronically ill His vital signs are documented elsewhere His abdomen shows no peritoneal signs. His bladder is not distended. Objective Last Vital Signs Temp 36.8 C 01/30/23 07:01 Pulse 89 01/30/23 07:01 Resp 18 01/29/23 23:06 BP 109/66 01/30/23 07:01 Pulse Ox 93 01/30/23 07:01 Laboratory Results - last 24 hr 01/27/23 12:10 Stool Description Not Applicable Stool Ova & Parasites SEE BELOW Cryptosporidium/Giardia SEE BELOW PAWSS Have you Been Recently Intoxicated or Drunk Within the Last 30 days?: Yes Have you Ever Experienced Previous Episodes of Alcohol Withdrawal?: No Have you ever Experienced Withdrawal Seizures?: No Have you ever Experienced Delirium Tremens(DT)s?: No Have you ever undergone Alcohol Rehabilitation Treatment (i.e, inpt ot outpatient treatment programs)?: No Have you ever Experienced Blackouts?: No Have you ever Combined Alcohol with other Downers within the last 90 days?: No Have you ever Combined Alcohol with any other Substance of Abuse during the last 90 days?: No Positive Blood Alcohol level on Presentation? [PCS.BAL]: No Evidence of Increased Autonomic Activity (i.e. HR>120, tremor, sweating, agitation, nausea)?: No Result: 1 Time Spent with Patient Time Spent with Patient: <25 minutes Time was spent: other
[2023-01-30] MEDS: Magnesium Gluconate 500 MG TAB PO (08:30)
[2023-01-30] MEDS: Dronabinol 2.5 MG CAP 5 MG PO (08:30)
[2023-01-30] MEDS: Potassium Chloride 10 MEQ CAPCR 20 MEQ PO (08:31)
[2023-01-30] MEDS: Normal Saline Flush 10 ML SYR IVP (08:31)
[2023-01-30] MEDS: Normal Saline 500 ML 100 ML IV (08:42)
[2023-01-30] MEDS: cefTRIAXone 2 GM/50 ML BAG IVPB (08:43)
--- NOTE | 2023-01-30 12:37 | W.PM.DS.N ---
Date of service: 01/30/23 Time of Service: 12:37 DS: Diagnosis Discharge Diagnosis (1) Bladder mass: Status: Acute (2) Abnormal weight loss: Status: Acute (3) Schizoaffective disorder: Status: Acute (4) Hypertension: Status: Chronic (5) Hyperlipidemia: Status: Acute (6) Adult failure to thrive: Status: Acute Discharge Plan Disposition Patient Disposition: Long-Term Facility(SNF) Condition: Improving Discharge Details Reason For Visit: FTT,leukocytosis Admit Date/Time: 01/22/23 14:37 Admit Provider: Camden Vela Attending Provider: Camden Vela Hospital Course Hospital Course: 62 yo male that is a poor historian but records from [facility] indicate major depression, schizophrenia and imaging at [place] indicated a possible bladder mass. He was seen in the [facility] ED 3 days ago and had a positive UA; prescribed Levaquin. 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 Patient was hospitalized consultations obtained with Dr. Santos Jimenez, urologist. Patient comes treated with IV antibiotics including Rocephin however repeated urine cultures came back no growth. Patient underwent cystoscopy by Dr. Jimenez which was accomplished on 01/26/2023. Dr. Jimenez performed biopsy of the bladder mass along with limited transpapillary through bladder resection of the mass. However this could not be completely extirpated due to the size of the mass. It is expected that if he needs further debulking he will need to be referred to a tertiary care center. Pathology mass is pending at this time but Dr. Jimenez anticipates that this will show a form of urothelial carcinoma with what appears to be liver and lung metastasis. He also has mediastinal adenopathy as well as retroperitoneal adenopathy. Dr. Jimenez then referred him to the [facility] once he has the pathology report. Postoperatively the patient did have significant hematuria which required 48 hours of continuous bladder irrigation. The day prior to discharge she was urine who cleared out his Oden catheter was removed. Patient has been adequately voiding on his own without evidence of urinary retention. Patient will be discharged to [facility] for Physical therapy to improve his strength as he has been too weak to care for himself and perform his ADL's independently. He had been living w/ his cousin Camden who has indicated that he can no longer care for him at home. Home Meds and New Rx's Prescriptions: New sennosides [Senokot] 8.6 mg Tablet 1 tab PO HS Qty: 0 0RF tramadol 50 mg Tablet 50 mg PO Q4H PRN PRNQty: 20 0RF dronabinol 2.5 mg Capsule 5 mg PO BID@0700,1600 Qty: 14 0RF hyoscyamine sulfate [Anaspaz] 0.125 mg Tablet,Disintegrating 0.125 mg sublingual Q4H PRN PRN (Reason: spasms) Qty: 0 0RF oxybutynin chloride 5 mg Tablet 5 mg PO TID PRN PRN (Reason: spasm) Qty: 0 0RF Phlexy-Vits 15 mg- 700 mcg Powder In Packet 1 oz PO BID Qty: 0 0RF Continued polyethylene glycol 3350 [Miralax] 17 gram Powder In Packet 17 g PO DAILY bisacodyl 10 mg Suppository 10 mg GA DAILY PRN PRN (Reason: Constipation) docusate sodium 100 mg Capsule 100 mg PO BID PRN PRN (Reason: Constipation) Discontinued levofloxacin 750 mg tablet 750 mg PO DAILY Qty: 6 0RF Discharge Instructions Instructions: Bladder Cancer (DC), Transurethral Resection of Bladder Tumors (GEN) Activity:: Activity as Tolerated Equipment/Supplies:: No Equipment Needed Diet:: high protein supplements tid Discharge Orders Discharge Orders: Discharge Order (Routine); Ordered 01/30/23 Ordered By: Earnest Rainey DS: Summary Time Spent with Patient providing and/or coordinating discharge services: Less than 30 minutes Specific discharge activities: patient was examined and counseled about plans for follow up w/ Dr. Jimenez, time spent was spent discussing his case w/ CM and nursing regarding his dc plans and orders were placed regarding reconciling his medications and time spent documenting his discharge summary Status at Discharge Functional status at discharge: uses cane/walker Overall status at discharge: patient is progressing back to baseline Mental Status: mental status grossly normal Speech and Movement: speech and movement normal Mood: congruent mood Affect: normal affect Exam Narrative Exam Narrative: Fritz is alert and oriented x 3, no acute distress his affect is flat Lungs: clear Heart: rrr Abdomen: scaphoid, nondistended, normal bowel sounds, mild suprapubic tenderness Extremities: no edema Psych Mental Status: mental status grossly normal Speech and Movement: speech and movement normal Mood: congruent mood Affect: normal affect DS: Data Vitals/I&O Vitals and I&O: Vital Signs Temperature 36.8 C 01/30/23 07:01 Temperature Source Tympanic 01/30/23 07:01 Pulse 89 01/30/23 07:01 Pulse Rhythm Regular 01/30/23 08:45 Pulse 78 01/22/23 16:16 Respiratory Rate 18 01/29/23 23:06 Respiratory Effort Normal, Non-Labored 01/30/23 08:45 Respiratory Depth Normal 01/30/23 08:45 Respiratory Pattern Normal 01/30/23 08:45 Blood Pressure 109/66 01/30/23 07:01 Blood Pressure Mean 104 01/22/23 16:16 Blood Pressure Position Sitting 01/22/23 10:55 Pulse Oximetry 93 01/30/23 07:01 Respiratory End-tidal CO2 27 01/26/23 16:58 Oxygen Delivery Method Room Air 01/30/23 07:01 Oxygen Flow Rate 0 01/30/23 07:01 Pain Level 0 01/30/23 08:28 Comment Pt. denies pain at this time. 01/30/23 08:28 Intake & Output 01/29/23 01/30/23 01/30/23 23:59 11:59 23:59 Intake Total 240 / 290 351.667 / 351.667 Balance 240 / 290 351.667 / 351.667 Intake: IV 111.667 / 111.667 Oral 240 / 240 240 / 240 Other: Urine Color [place] Urine Appearance Hematuria Hematuria Urine Odor Normal Normal Comment blood in urine Pt was incontinent, urine was pink/red in color. Stool Size Smear Moderate Stool Characteristics Liquid Soft Brown Voiding Methods Diaper Incontinent Data Completed and Pending Labs on day of discharge: Labs from last 24 hours 01/27/23 12:10 Stool Description Not Applicable Stool Ova & Parasites SEE BELOW PFSH All Active Problems DVT prophylaxis (Acute) Ureteral stricture (Acute) Hematuria (Acute) Suprapubic pain (Acute) Discharge planning issues (Acute) Abnormal weight loss (Acute) Schizoaffective disorder (Acute) Pt reports possible schizophrenia, hx hallucinations. Unclear if this is valid dx. No old records available. reports muliple admissions to [facility] Advanced care planning/counseling discussion (Acute) Palliative care encounter (Acute) General weakness (Acute) Urinary tract infection (Acute) Fall (Acute) Blunt head trauma (Acute) Adult failure to thrive (Acute) Hyperlipidemia (Acute) Hypertension (Chronic) Bladder mass (Acute) Social History Smoking/Tobacco Use Status: Current every day Tobacco Type: cigarettes Smoking risk assessment performed?: Yes Alcohol Intake: current Alcohol Intake frequency: 3 or more drinks per day Alcohol type: beer Drug use: Occasionally Substance use type: marijuana Housing: other What is your relationship status?: Panel score (0-1 are the most socially isolated patients): 0 Do you feel safe at home: Yes Do you feel safe in your relationship?: Yes Time Spent with Patient Time Spent with Patient: <45 minutes Time was spent: preparing to see the patient(eg.review tests), ordering medications,tests, procedures, referring, communicating with other health health care law specialist, indepentently interpreting results, counseling the patient and care coordination
--- NOTE | 2023-01-30 12:56 | CMDISCH_ITS ---
Date of service: 01/30/23 Time of Service: 12:57 LACE Index Scoring Tool Questions: Length of Stay (in days): 7 - 13 Was the patient admitted via the E.D.?: Yes Comorbidities: Any Tumor (awaiting pathology results of bladder mass biopsy) E.D. Visits: 1 Answers: Total Score: 11 Risk of Readmission: High Risk Care Management Discharge Plan Reason for Hospitalization: Failure to thrive, leukocytosis Discharge Plan: Fritz is discharged to [facility] for short term rehab. He will follow up with his PCP, urologist, [facility] and plan of care as instructed. He is transported to the Rehab via facility w/c van. Patient/Family Education Needs: Review of discharge instructions including medications, limitations and follow up plan of care; discuss Ask Me Three. Services Needed at Discharge: [facility] Facility
--- NOTE | 2023-01-30 14:26 | NUR.NOTE ---
Nursing Note: At approximately 1415 on 01/30/23, this RN called a nurse to nurse report to Makenna (nurse) at [facility]. RN gave report regarding pt.'s mentation, VS, pain level, head to toe assessment, plan of care, etc. RN then informed Makenna that the pt. would be discharging at approximately 1500 on 01/30/23. Makenna verbalized understanding and presented with a few questions that were answered. Call then ended.
--- NOTE | 2023-01-31 05:36 | PT.INDS ---
PT Notes Visit Reasons: FTT,leukocytosis Physical Therapy Inpatient Discharge Summary Dates of Service: 01/23/2023 - 01/30/23 Date: 01/31/23 Referring Doctor: Camden Vela MD PT Orders: PT CONSULT: Eval/treat Precautions: Fall. Standard. Activity as tolerated. This document serves as a summary of care. No PT services were provided on this date. Patient Profile/Admitting Diagnosis: Fritz is a 62-year-old old male admitted on 01/22/2023 for management of generalized weakness, fall, adult failure to thrive, and bladder mass. Patient participated in 4 sessions of PT intervention over the course of 8 days, declining PT multiple times during that time. He demonstrated continued mobility impairments and requires continued rehab in SNF setting. PMHX: All Active Problems? General weakness (Acute) Urinary tract infection (Acute) Fall (Acute) Blunt head trauma (Acute) Adult failure to thrive (Acute) Hyperlipidemia (Acute) Hypertension (Chronic) Bladder mass (Acute) Social History/Home Situation: Lives with cousin in a private home. Occasionally use a SPC. No longer drives. Able to prepare his own meals and has been independent with bathing and dressing. Cousin works during the day. Equipment Owned/DME: SPC Subjective: none Objective: ROM: Right Upper Extremity: Shoulder Flexion WFL. Shoulder abduction WFL. Elbow flexion WFL. Wrist flexion WFL. Functional opening and closing of hand WFL. Left Upper Extremity: Shoulder Flexion WFL. Shoulder abduction WFL. Elbow flexion WFL. Wrist flexion WFL. Functional opening and closing of hand WFL. Right Lower Extremity: Hip flexion WFL. Hip abduction WFL. Knee flexion WFL. Ankle dorsiflexion WFL. Ankle plantarflexion WFL. Left Lower Extremity: Hip flexion WFL. Hip abduction WFL. Knee flexion WFL. Ankle dorsiflexion WFL. Ankle plantarflexion WFL. Strength: Right Upper Extremity: Shoulder flexors 4-/5. Shoulder abductors 4-/5. Elbow flexors 4-/5. Elbow extensors 4-/5. Butter Production Supervisor strong. Left Upper Extremity: Shoulder flexors 4-/5. Shoulder abductors 4-/5. Elbow flexors 4-/5. Elbow extensors 4-/5. Butter Production Supervisor strong. Right Lower Extremity: Hip flexors 4-/5. Hip abductors 4-/5. Knee flexors 4-/5. Knee extensors 4-/5. Ankle dorsiflexors 4-/5. Ankle plantarflexors 4-/5. Left Lower Extremity: Hip flexors 4-/5. Hip abductors 4-/5. Knee flexors 4-/5. Knee extensors 4-/5. Ankle dorsiflexors 4-/5. Ankle plantarflexors 4-/5. BED MOBILITY/TRANSFERS?Rolling L/R: independent ?Supine-sit: independent ?Sit-supine: independent?Sit-stand: SBA?Stand-sit: SBA ?Bed-Chair: SBA?Chair-bed: SBA ?Ambulation ?Assistive Device: FWW ?Weight bearing: full ?Assist: SBA ?Distance:? Demonstrated ability to ambulate up to 80 feet?Deviation: stooped posture, reduced step length, reduced gray. Balance: Static Sitting: Normal Dynamic Sitting: Normla Static Standing: Fair Dynamic Standing: Fair Assessment: Functional mobility decline, generalized weakness, and balance deficits all decrease ability of patient to safely thrive at home alone. Patient participated in 4 sessions of PT intervention over the course of 8 days, declining PT multiple times during that time. He demonstrated continued mobility impairments and requires continued rehab in SNF setting. Goals: Goals X1 week 1. Supine-Sit independent (MET) 2. Sit-Supine independent(MET) 3. Sit-Stand independent (MET) 4. Stand-Sit independent with FWW (MET) 5. Bed-Chair independent with FWW (Progressing Toward) 6. Chair-Bed independent with FWW (Progressing Toward) 7. Independent gait on level surface with use of FWW for at least 300 feet without report of pain nor dyspnea (NOT MET) 8. Independent stair negotiation while holding onto B rails for at least 5 steps without report of pain nor dyspnea (NOT MET) 9. Good static and dynamic standing balance/tolerance (NOT MET) Plan of Care/Treatment Plan: D/C from PT in acute care setting DISCHARGE RECOMMENDATIONS: SNF for continued progress toward rehab goals TREATMENT CODE/TIME: none Thank you for the opportunity to participate in the care of this patient. Annalise Carey PT, DPT [facility] [place], [place]
== END 2023-01-30 15:26 | disposition skilled nursing facility (03) | DRG 668 ==
LOC: ER 14:42 → MS 16:26
PROVIDERS: Family Medicine; Internal Medicine; Urology; Admitting Provider Family Medicine; Emergency Provider Student in an Organized Health Care Education/Training Program; Visit Provider Family Medicine
PROC: 0TBB8ZZ Excision of Bladder, Via Natural or Artificial Opening Endoscopic (ICD-10-PCS; CPT 52240; principal; 2023-01-26 12:30)
PROC: 0TJB8ZZ Inspection of Bladder, Via Natural or Artificial Opening Endoscopic (ICD-10-PCS; CPT 52000; principal; 2023-01-26 15:55)
DX: C67.8 Malignant neoplasm of overlapping sites of bladder (principal); E43 Unspecified severe protein-calorie malnutrition; N39.0 Urinary tract infection, site not specified; C77.8 Secondary and unspecified malignant neoplasm of lymph nodes of multiple regions; C78.7 Secondary malignant neoplasm of liver and intrahepatic bile duct; C78.00 Secondary malignant neoplasm of unspecified lung; N13.39 Other hydronephrosis; R53.1 Weakness; W19.XXXA Unspecified fall, initial encounter; R62.7 Adult failure to thrive; N32.89 Other specified disorders of bladder; F25.9 Schizoaffective disorder, unspecified; R63.4 Abnormal weight loss; N13.5 Crossing vessel and stricture of ureter without hydronephrosis; R29.6 Repeated falls; E78.5 Hyperlipidemia, unspecified; I10 Essential (primary) hypertension; F17.210 Nicotine dependence, cigarettes, uncomplicated; F12.90 Cannabis use, unspecified, uncomplicated; S09.8XXA Other specified injuries of head, initial encounter; Z68.20 Body mass index [BMI] 20.0-20.9, adult; R15.9 Full incontinence of feces; Z85.89 Personal history of malignant neoplasm of other organs and systems; R31.0 Gross hematuria; N35.919 Unspecified urethral stricture, male, unspecified site; Z66 Do not resuscitate; R32 Unspecified urinary incontinence
CPT/HCPCS: 52240; 36415; 51703; 52281; 71250; 80048; 80053; 87329; 87493; 87505; 88305; 92610; 96360; 96361; 97110; 97162; 97530; 99222; 99231; 99232; 99285; 70450; 74176; 81003; 81015; 83735; 84439; 84443; 85025; 87086; 87177; 99223; 99233; 99239; J0690; J2001; J2060; J2270; J3490

== ENCOUNTER → 2023-01-26 13:40 | Outpatient (BNVA) | payer MEDICAID, SELFPAY | PROVIDERS: Visit Provider Urology ==